=== PATIENT | male | born 1975 | race Two or more races ===

== ENCOUNTER 2024-10-31 04:22 | Emergency (ER) | payer MEDICAID, SELFPAY ==
[2024-10-31 04:23] VITALS: BMI 25.7
[2024-10-31 04:31] VITALS: BP 147/82; PULSE 97; RESP 18; TEMP 37.1; O2SAT 97
--- NOTE | 2024-10-31 04:38 | EDNOTE_ITS ---
Upper Respiratory Inf. RME/HPI General Chief Complaint: Flu Like Symptoms Stated Complaint: cough, neck and lung pain Time Seen by Provider: 10/31/24 04:35 Source: patient Arrival date/time: 10/31/24 04:22 49-year-old male past medical history of diabetes presents emergency department complaining of productive cough with green phlegm, headache, and lung pain for 2 days. Mode of arrival: ambulatory Limitations: no limitations Related Data Home Medications ?Medication ?Instructions ?Recorded ?Confirmed metformin 1,000 mg tablet 1,000 mg PO BID 04/04/19 02/23/24 hydrochlorothiazide 25 mg tablet 25 mg PO DAILY 02/23/24 02/23/24 Previous Rx's ?Medication ?Instructions ?Recorded lancet with blood glucose test #300 ea 03/09/23 strips and pen needles combo pack flash glucose scanning reader #1 ea 02/25/24 (FreeStyle Joellen 14 Day [place]) flash glucose sensor (FreeStyle #1 ea 02/25/24 Joellen 2 Sensor kit) acetaminophen 500 mg capsule 500 mg PO Q6H PRN pain #30 caps 10/31/24 azithromycin 250 mg tablet See Rx Instructions PO .COMPLEX #6 10/31/24 tabs ibuprofen 600 mg tablet 600 mg PO Q8H PRN pain #20 tabs 10/31/24 Allergies Allergy/AdvReac Type Severity Reaction Status Date / Time No Known Allergies Allergy Verified 08/08/24 16:32 Review of Systems Review of Systems Systems Reviewed: All systems reviewed, normal except as documented Constitutional Constitutional: Reports system reviewed and no additional complaints, except as documented, Denies body ache(s), Denies chills, Denies fever(s) and Reports headache(s) Eyes Eyes: Reports system reviewed and no additional complaints, except as documented and Denies change in vision ENT Ears, Nose, Mouth, and Throat: Reports system reviewed and no additional complaints, except as documented, Denies disequilibrium, Denies dizziness, Reports headache(s), Denies sore throat and Denies vertigo Cardiovascular Cardiovascular: Reports system reviewed and no additional complaints, except as documented, Denies chest pain and Denies dyspnea Respiratory Respiratory: Reports system reviewed and no additional complaints, except as documented, Denies chest congestion, Reports cough, Denies dyspnea and Reports excessive phlegm production Gastrointestinal Gastrointestinal: Reports system reviewed and no additional complaints, except as documented, Denies abdominal pain, Denies nausea and Denies vomiting Musculoskeletal Musculoskeletal: Reports system reviewed and no additional complaints, except as documented, Denies abnormal gait and Denies arthralgias Integumentary/Breasts Skin/Breast: Reports system reviewed and no additional complaints, except as documented, Denies erythema, Denies rash and Denies wounds Neurologic Neurologic: Reports system reviewed and no additional complaints, except as docu mented, Denies abnormal gait, Denies disequilibrium, Denies dizziness, Reports headache(s) and Denies vertigo Past Medical History Past Medical History NEUROLOGIC: Negative Seizures CARDIAC: Positive Hypertension; Negative Cardiac Disorders or Congestive Heart Failure RESPIRATORY: Negative Chronic Obstructive Pulmonary Disease (COPD) or Asthma GENITOURINARY: Negative Renal Disease ENDOCRINE: Positive Endocrine Disorders and Diabetes Mellitus Type 2; Negative Diabetes Mellitus Type 1 HEMATOLOGIC: Negative Sickle Cell Disease OTHER HISTORY: Negative Falls, Blood Transfusions, Blood Transfusion Reaction or Anesthesia Reactions Social History SMOKING STATUS: Never smoker SECOND HAND EXPOSURE: No SUBSTANCE USE: does not use ED Exam General Limitations: Present no limitations General appearance: Present alert and in no apparent distress Head Head exam: Present atraumatic Eye Eye exam: Present normal appearance, PERRL and EOMI ENT ENT exam: Present normal exam, normal oropharynx and mucous membranes moist Neck Neck exam: Present normal inspection, full ROM and trachea midline Chest Chest inspection: Present normal inspection and symmetric chest wall rise Respiratory Respiratory exam: Present normal lung sounds bilaterally and other (Fine crackles left lower lobe on inspiration) Cardiovascular Cardiovascular exam: Present regular rate, normal rhythm and normal heart sounds Abdominal Exam Abdominal exam: Present soft and normal bowel sounds Extremities Exam Extremities exam: Present normal inspection and full ROM Back Exam Back exam: Present normal inspection and full ROM Neurological Exam Neurological exam: Present alert, oriented X3 and CN II-XII intact Psychiatric Psychiatric exam: Present normal affect and normal mood Skin Skin exam: Present warm, dry, intact and normal color Course Quality Measures none Orders Category Date Time Status Bedside COVID-19 Antigen Test NOW Care 10/31/24 04:37 Active Bedside Influenza A&B Antigen Test NOW Care 10/31/24 04:37 Completed Acetaminophen Tab [Tylenol ES Tab] Med 10/31/24 04:37 Discontinued 1,000 mg PO X1 ONE Ibuprofen Tab [Motrin Tab] Med 10/31/24 04:37 Discontinued 600 mg PO X1 ONE Vital Signs Vital signs: Vital Signs Temperature 98.7 F 10/31/24 04:31 Pulse Rate 97 10/31/24 04:31 Respiratory Rate 18 10/31/24 04:31 Blood Pressure 147/82 H 10/31/24 04:31 Pulse Oximetry (%) 97 10/31/24 04:31 Oxygen Delivery Method Room Air 10/31/24 04:31 97% room air within normal limits Upper Respiratory Infection MDM Narrative MDM Narrative:: 49-year-old male past medical history of diabetes presents emergency department complaining of productive cough with green phlegm, headache, and lung pain for 2 days. Left lower lobe fine crackles on auscultation. Patient also reports has been having subjective fevers at home. Due to the fact patient reporting subjective fevers green phlegm and fine crackles left lower lobe we will empirically treat for pneumonia. Patient stable for discharge. Patient data External records reviewed:: [facility] previous records Clinical information provided by:: patient Social determinants that could affect healthcare access:: none Patient has the following chronic illnesses:: See chart How is presenting disease/condition affected by chronic disease/condition?: uneffected by Evaluation data The following diagnostics were reviewed and interpreted by me:: lab results Lab and/or radiology exams considered but not ordered:: Ordered Interpretation Summary: Interpreted by me Medications / Prescriptions Medications or Prescriptions considered but not ordered:: Ordered Medication administrations:: Medication Administration History Discontinued Medications Acetaminophen (Acetaminophen 500 Mg Tablet) 1,000 mg PO X1 ONE Stop: 10/31/24 04:38 Last Admin: 10/31/24 04:53 Dose: 1,000 mg Documented By: KG Ibuprofen (Ibuprofen Tab 600 Mg Tablet) 600 mg PO X1 ONE Stop: 10/31/24 04:38 Last Admin: 10/31/24 04:53 Dose: 600 mg Documented By: KG Given Consultations Consultation(s) initiated? (list below): No Diagnosis Upper Respiratory Differential Diagnosis: upper respiratory infection, sinusitis, viral infection, bronchitis, influenza and pharyngitis Most likely diagnosis given after review of the tests above:: Pneumonia Admission Indicated Admission indicated?: not indicated Admission Request Was there a request for admission?: No Disposition Plan Disposition Plan: Discharge Discharge Attestation Discharge Attestation: The patient and all family members were given an opportunity to ask questions and understood the discharge instructions. Discharge instructions specifically effects, indications for sooner follow up or return to the emergency department, and the expected course of current diagnosis. Patient condition: Stable Discharge Plan Plan Patient Disposition: HOME (Self Care) Disposition Comment: Stable Prescriptions/Referrals Prescriptions/Med Rec: New azithromycin 250 mg tablet See Rx Instructions .ROUTE .COMPLEX Qty: 6 0RF Rx Instructions: For 250 mg dose pack: take 500 mg today (day 1), then 250 mg for 4 days (days 2-5) acetaminophen 500 mg capsule 500 mg PO Q6H PRN (Reason: pain) Qty: 30 0RF ibuprofen 600 mg tablet 600 mg PO Q8H PRN (Reason: pain) Qty: 20 0RF No Action metformin 1,000 mg Tablet 1,000 mg PO BID (DME) lancet-gluc test strip-needles Combo Pack See Rx Instructions .Route Qty: 300 0RF Rx Instructions: As directed hydrochlorothiazide 25 mg tablet 25 mg PO DAILY (DME) FreeStyle Joellen 2 Sensor Kit See Rx Instructions .Route Qty: 1 6RF Rx Instructions: As directed (DME) FreeStyle Joellen 14 Day [place] Misc See Rx Instructions .Route Qty: 1 0RF Rx Instructions: As directed Problem List Clinical Impression: Pneumonia Patient/Caregiver Discharge Instructions Discharge Activity: activity as tolerated Education Materials: ED Pneumonia (Adult) Additional Instructions: Drink plenty of fluids and get plenty of rest. Take Tylenol or ibuprofen as needed for fever or pain. Take antibiotics as prescribed. Follow-up with primary care provider in 2 to 3 days. Return to emergency department for any worsening symptoms or as needed. Print Language: Congolese Stand Alone Forms: [facility] Award Info., Patient Portal Info Letter PA/SAEID Supervising Physician AHSAN/SAEID Supervising Physician: Dr. Arguello
[2024-10-31] MEDS: ACETAMINOPHEN 500 MG TABLET 1000 MG PO (04:53)
[2024-10-31] MEDS: IBUPROFEN TAB 600 MG TABLET PO (04:53)
== END 2024-10-31 05:19 | disposition home or self-care (01) ==
LOC: SERX 05:21
PROVIDERS: Emergency Provider Emergency Medicine; PCP Physician Assistant
DX: J18.9 Pneumonia, unspecified organism (principal)
CPT/HCPCS: 87400; 87811; 99283; A9270

== ENCOUNTER 2024-12-05 16:37 | Emergency (ER) | payer MEDICAID, SELFPAY ==
[2024-12-05 17:18] VITALS: BP 161/96; PULSE 106; RESP 20; TEMP 37; O2SAT 95
--- NOTE | 2024-12-05 17:22 | XR_ITS ---
Examination: PA lateral chest 2 views Technique: Upright PA lateral chest 2 views Exam date and time: December 05, 2024 Indications: Coughing today. Findings: Normal heart size. No pneumonia or pulmonary edema. The osseous structures are intact Impression: No pneumonia or pulmonary edema
--- NOTE | 2024-12-05 17:22 | PD.EDRME ---
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
[2024-12-05 18:09] LABS: Basophils % (Auto) 1 % (0-2.5); Eosinophils % (Auto) 1 % (0-10); Hematocrit 37.2 % (41.0-53.0); Hemoglobin 13.3 g/dL (13.5-16.0); Immature Granulocytes % (Auto) 0 % (0-0); Lymphocytes # (Auto) 1.8 Thou/mm3 (1.0-4.8); Lymphocytes % (Auto) 41 % (10-50); Mean Corpuscular HGB Conc 35.8 g/dl (31.0-37.0); Mean Corpuscular Hemoglobin 34.4 pg (25.0-35.0); Mean Corpuscular Volume 96 fL (80-100); Monocytes # (Auto) 0.5 Thou/mm3 (0.0-0.8); Monocytes % (Auto) 11 % (0-12); Neutrophils # (Auto) 2.1 Thou/mm3 (1.8-7.7); Neutrophils % (Auto) 47 % (37-80); Nucleated Red Blood Cell % 0 /100 WBC (0); Platelet Count 105 Thou/mm3 (140-440); RDW Standard Deviation 46.9 fL (35.1-43.9); Red Blood Count 3.87 Miln/mm3 (4.50-5.90); White Blood Count 4.4 Thou/mm3 (3.8-10.6)
[2024-12-05 18:25] LABS: Alanine Aminotransferase 32 U/L (10-49); Albumin, Serum 4.4 gm/dL (3.5-5.0); Albumin/Globulin Ratio 1.4 (1.2-2.2); Alkaline Phosphatase 87 U/L (46-116); Anion Gap 11 (7-16); Aspartate Amino Transferase 38 U/L (0-34); BUN/Creatinine Ratio 8 Ratio (12-20); Bilirubin,Total 0.5 mg/dL (0.3-1.2); Blood Urea Nitrogen < 5 mg/dL (9-23); Calcium 8.9 mg/dL (8.3-10.6); Calcium (Corrected) 8.9 mg/dL (8.5-10.1); Carbon Dioxide 26.8 mMol/L (20.0-31.0); Chloride 96 mMol/L (98-107); Creatinine (Component) 0.6 mg/dL (0.6-1.3); Globulin 3.1 gm/dL (2.3-3.5); Glucose 133 mg/dL (74-106); Osmolality,Calculated 267 (275-295); Potassium 3.7 mMol/L (3.4-5.1); Sodium 134 mMol/L (136-145); Total Protein 7.5 gm/dL (5.7-8.2); eGFR > 60 See Note
[2024-12-05 19:45] VITALS: BP 174/93; BP 178/99; PULSE 104; RESP 18; TEMP 36.7; O2SAT 95
--- NOTE | 2024-12-05 21:35 | PD.EDSOB ---
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 Onset of symptoms for more than a month, getting worse, severity moderate. Also complaining of shortness of breath. Denies any fever denies any other complaints or medications taken prior to arrival. Related Data Home Medications ?Medication ?Instructions ?Recorded ?Confirmed metformin 1,000 mg tablet 1,000 mg PO BID 04/04/19 02/23/24 hydrochlorothiazide 25 mg tablet 25 mg PO DAILY 02/23/24 02/23/24 Previous Rx's ?Medication ?Instructions ?Recorded lancet with blood glucose test #300 ea 03/09/23 strips and pen needles combo pack flash glucose scanning reader #1 ea 02/25/24 ([facility] Joellen 14 Day [place]) flash glucose sensor ([employer]Style #1 ea 02/25/24 Joellen 2 Sensor kit) acetaminophen 500 mg capsule 500 mg PO Q6H PRN pain #30 caps 10/31/24 azithromycin 250 mg tablet See Rx Instructions PO .COMPLEX #6 10/31/24 tabs ibuprofen 600 mg tablet 600 mg PO Q8H PRN pain #20 tabs 10/31/24 albuterol sulfate 90 mcg/actuation 2 inh inhalation Q6H PRN shortness 12/05/24 aerosol inhaler of breath or wheezing #8.5 grams prednisone 50 mg tablet 50 mg PO QDAY #7 tabs 12/05/24 Allergies Allergy/AdvReac Type Severity Reaction Status Date / Time No Known Allergies Allergy Verified 08/08/24 16:32 Review of Systems Review of Systems Narrative Review of Systems: Review of system reviewed and within normal limits except mentioned in HPI ED Exam Narrative Physical exam: VITAL SIGNS: Reviewed. GENERAL APPEARANCE: Alert and interactive, follows commands, no acute distress, HEAD AND FACE: Non-traumatic. ENT: PERRL, pink conjunctivitis, eyelid no trauma, Mucous membrane moist. NECK: Supple, nontender, no nuchal rigidity. CHEST: No tenderness, no crepitus, no paradoxical movement, no retractions. LUNGS: Clear, well ventilated, symmetric, no rales, no wheezing, no ronchi, no stridor, good breath sounds bilaterally. HEART: Regular rate, regular rhythm, no murmur, no gallops. ABDOMEN: Soft, positive bowel sounds, nondistended, no guarding, nontender, no rebound, no masses, RECTAL: Deferred. GENITAL: Deferred. NEUROLOGICAL: Gross motor function intact sensory function intact, Appropriate for age. MUSCULOSKELETAL: low back nontender, full range of motion. EXTREMITIES: Nontender, full range of motion. SKIN: Color pink, dry, no rash, no lacerations, no abrasions, no contusions. LYMPHATICS: Deferred. Course Quality Measures none Orders Category Date Time Status Bedside Influenza A&B Antigen Test NOW Care 12/05/24 17:22 Completed XR chest 2V Stat Exams 12/05/24 17:22 Completed CBC Stat Lab 12/05/24 17:46 Completed CMP [Comprehensive Metabolic Panel] Stat Lab 12/05/24 17:46 Completed Vital Signs Vital signs: Vital Signs Temperature 98.6 F 12/05/24 17:18 Pulse Rate 106 H 12/05/24 17:18 Respiratory Rate 20 12/05/24 17:18 Blood Pressure 161/96 H 12/05/24 17:18 Pulse Oximetry (%) 95 12/05/24 17:18 Oxygen Delivery Method Room Air 12/05/24 17:18 Shortness of Breath / Dyspnea MDM Narrative MDM Narrative:: 49-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 Onset of symptoms for more than a month, getting worse, severity moderate. Also complaining of shortness of breath. Denies any fever denies any other complaints or medications taken prior to arrival. Patient's workup all came back normal including normal chest x-ray. Results discussed with the patient. Patient appears nontoxic and hemodynamically stable. Patient discharged home and instructed to follow-up with primary care provider in 24 to 48 hours. Instructed to return to the emergency department immediately if worsening of symptoms Patient data External records reviewed:: None Clinical information provided by:: patient Social determinants that could affect healthcare access:: none Patient has the following chronic illnesses:: Pretension How is presenting disease/condition affected by chronic disease/condition?: uneffected by Evaluation data The following diagnostics were reviewed and interpreted by me:: lab results and radiology exam(s) Lab and/or radiology exams considered but not ordered:: None Interpretation Summary: See results in [facility] Medications / Prescriptions Medications or Prescriptions considered but not ordered:: None Medication administrations:: None Consultations Consultation(s) initiated? (list below): No Diagnosis Shortness of Breath Differential Diagnosis: community acquired pneumonia and asthma with exacerbation Most likely diagnosis given after review of the tests above:: Cough, shortness of breath Admission Indicated Admission indicated?: not indicated Admission Request Was there a request for admission?: No Disposition Plan Disposition Plan: Discharge Discharge Attestation Discharge Attestation: The patient was given an opportunity to ask questions and understood the discharge instructions. Discharge instructions specifically effects, indications for sooner follow up or return to the emergency department, and the expected course of current diagnosis. Patient condition: Stable Discharge Plan Plan Patient Disposition: HOME (Self Care) Disposition Comment: Stable Prescriptions/Referrals Prescriptions/Med Rec: New prednisone 50 mg tablet 50 mg PO QDAY Qty: 7 0RF albuterol sulfate 90 mcg/actuation HFA aerosol inhaler 2 inh inhalation Q6H PRN (Reason: shortness of breath or wheezing) Qty: 8.5 0RF No Action metformin 1,000 mg Tablet 1,000 mg PO BID (DME) lancet-gluc test strip-needles Combo Pack See Rx Instructions .Route Qty: 300 0RF Rx Instructions: As directed hydrochlorothiazide 25 mg tablet 25 mg PO DAILY (DME) FreeStyle Joellen 2 Sensor Kit See Rx Instructions .Route Qty: 1 6RF Rx Instructions: As directed (DME) FreeStyle Joellen 14 Day [place] Misc See Rx Instructions .Route Qty: 1 0RF Rx Instructions: As directed azithromycin 250 mg tablet See Rx Instructions .ROUTE .COMPLEX Qty: 6 0RF Rx Instructions: For 250 mg dose pack: take 500 mg today (day 1), then 250 mg for 4 days (days 2-5) acetaminophen 500 mg capsule 500 mg PO Q6H PRN (Reason: pain) Qty: 30 0RF ibuprofen 600 mg tablet 600 mg PO Q8H PRN (Reason: pain) Qty: 20 0RF Referrals: Chikis Rodriguez PA-C [Primary Care Provider] - In 1 week Problem List Clinical Impression: Cough, Shortness of breath Patient/Caregiver Discharge Instructions Discharge Activity: activity as tolerated Education Materials: ED Shortness of Breath (Dyspnea) Additional Instructions: Thank you for the opportunity for serving you today. You are stable for discharged . You are advised to: Follow-up with your PCP in 1 to 2 days Return to ED for worsening of symptoms Increase oral fluids Take medication as prescribed Print Language: Armenian Stand Alone Forms: [facility] Award Info., Patient Portal Info Letter PA/CUSTOMS BROKER Supervising Physician PA/CUST[employer]S BROKER Supervising Physician: MD French
== END 2024-12-05 22:25 | disposition home or self-care (01) ==
PROVIDERS: Nurse Practitioner Primary Care; Emergency Provider Emergency Medicine; PCP Physician Assistant
DX: R05.9 Cough, unspecified (principal); R06.02 Shortness of breath; Z86.19 Personal history of other infectious and parasitic diseases
CPT/HCPCS: 36415; 71046; 80053; 85025; 87400; 99283

== ENCOUNTER 2025-02-28 14:58 | Emergency (ER) | payer MEDICAID, SELFPAY ==
[2025-02-28 15:11] VITALS: BP 146/93; PULSE 115; RESP 18; TEMP 36.9; O2SAT 96; BMI 26.2
--- NOTE | 2025-02-28 15:16 | XR_ITS ---
Examination: PA lateral chest 2 views TECHNIQUE: Upright PA lateral chest 2 views Date and time: February 28, 2025 1655 hours INDICATIONS: Chest pain today. FINDINGS: Normal heart size. Lungs are clear. The osseous structures are intact IMPRESSION: No active disease
--- NOTE | 2025-02-28 15:16 | EKG_ITS ---
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
--- NOTE | 2025-02-28 15:17 | PD.EDRME ---
Rapid Medical Screening Exam RME Arrival date/time: 02/28/25 14:58 49-year-old male with a history of type 2 diabetes presents to the emergency room with a chief complaint of generalized body tingling, chest pain and weakness since 10 AM this morning I have greeted and performed a focused initial assessment of this patient. A comprehensive ED assessment and evaluation of the patient, analysis of all test results, and completion of the medical decision making process will be conducted by additional ED providers. Chief Complaint: General Adult/Misc Complain Time Seen by Provider: 02/28/25 15:05 Vital signs: Vital Signs Temperature 98.4 F 02/28/25 15:11 Pulse Rate 115 H 02/28/25 15:11 Respiratory Rate 18 02/28/25 15:11 Blood Pressure 146/93 H 02/28/25 15:11 Pulse Oximetry (%) 96 02/28/25 15:11 Oxygen Delivery Method Room Air 02/28/25 15:11 Vital signs reviewed by provider: Yes
[2025-02-28 15:52] LABS: Basophils % (Auto) 1 % (0-2.5); Eosinophils % (Auto) 0 % (0-10); Hematocrit 39.6 % (41.0-53.0); Hemoglobin 14.4 g/dL (13.5-16.0); Immature Granulocytes % (Auto) 0 % (0-0); Immature Granulocytes Auto 0.01 Thou/mm3 (0.00-0.00); Lymphocytes # (Auto) 1.4 Thou/mm3 (1.0-4.8); Lymphocytes % (Auto) 27 % (10-50); Mean Corpuscular HGB Conc 36.4 g/dl (31.0-37.0); Mean Corpuscular Hemoglobin 35.7 pg (25.0-35.0); Mean Corpuscular Volume 98 fL (80-100); Monocytes # (Auto) 0.5 Thou/mm3 (0.0-0.8); Monocytes % (Auto) 10 % (0-12); Neutrophils # (Auto) 3.1 Thou/mm3 (1.8-7.7); Neutrophils % (Auto) 62 % (37-80); Nucleated Red Blood Cell % 0 /100 WBC (0); Platelet Count 104 Thou/mm3 (140-440); RDW Standard Deviation 46.1 fL (35.1-43.9); Red Blood Count 4.03 Miln/mm3 (4.50-5.90); White Blood Count 5.1 Thou/mm3 (3.8-10.6)
[2025-02-28 16:04] LABS: Partial Thromboplastin Time 29.9 Seconds (22.0-36.0); Prothrombin Time 11.4 Seconds (9.0-12.2)
[2025-02-28 16:12] LABS: B-Type Natriuretic Peptide < 20 pg/mL (0-100)
[2025-02-28 16:15] LABS: Alanine Aminotransferase 139 U/L (10-49); Albumin, Serum 4.6 gm/dL (3.5-5.0); Albumin/Globulin Ratio 1.4 (1.2-2.2); Alcohol, Blood Medical 181.9 mg/dL (0-10.0); Alkaline Phosphatase 93 U/L (46-116); Anion Gap 12 (7-16); Aspartate Amino Transferase 152 U/L (0-34); BUN/Creatinine Ratio 8 Ratio (12-20); Bilirubin,Total 0.7 mg/dL (0.3-1.2); Blood Urea Nitrogen 6 mg/dL (9-23); Carbon Dioxide 24.7 mMol/L (20.0-31.0); Chloride 100 mMol/L (98-107); Creatine Kinase 170 U/L (34-171); Creatinine (Component) 0.8 mg/dL (0.6-1.3); Estimated Creatinine Clearance 87.9 mL/min (>60); Globulin 3.3 gm/dL (2.3-3.5); Glucose 160 mg/dL (74-106); Magnesium 1.7 mg/dL (1.6-2.6); Osmolality,Calculated 274 (275-295); Potassium 3.6 mMol/L (3.4-5.1); Sodium 137 mMol/L (136-145); Total Protein 7.9 gm/dL (5.7-8.2); Troponin I < 0.020 ng/mL (0.0-0.045); eGFR > 60 See Note
[2025-02-28 16:26] LABS: Collection Type, Urine Clean Catch; Squamous Epithelial Cell,Urine 0 /hpf (0-5)
[2025-02-28 16:35] LABS: Bilirubin,Urine Negative (Negative); Blood,Urine 1+ (Negative); Clarity,Urine Clear (Clear/Hazy); Color,Urine Lt-Yellow (Lt Yel-Yel); Glucose, Urine 1+ (Negative); Ketones,Urine Negative (Negative); Leukocyte Esterase,Urine Negative (Negative); Nitrite,Urine Negative (Negative); PH,Urine 6.5 (5.0-7.0); Protein,Urine 2+ (Neg - Trace); RBC,Urine 3 /hpf (0-3); Specific Gravity,Urine 1.007 (1.001-1.035); Urobilinogen,Urine Negative mg/dL (0.0-1.0); WBC,Urine 1 /hpf (0-5)
[2025-02-28 16:42] LABS: Amphetamine/Methamp Scrn,U Negative (Negative); Barbiturate Screen,Urine Negative (Negative); Benzodiazepines Screen,Urine Negative (Negative); Benzoylecgonine Screen, Ur Negative (Negative); Fentanyl Screen,Urine Negative (Negative); Opiate Screen,Urine Negative (Negative); THC Screen,Urine Negative (Negative)
--- NOTE | 2025-02-28 17:56 | PD.EDADULT ---
ED General RME/HPI General Chief complaint: General Adult/Misc Complain Stated complaint: Tingling sensation in whole body and chest pain Time Seen by Provider: 02/28/25 15:05 Arrival date/time: 02/28/25 14:58 RME / HPI RME / HPI narrative: 49-year-old male patient with significant history of diabetes mellitus, chronic alcoholism, came in for evaluation regarding generalized body tingling, chest pain, weakness, since earlier this morning. Patient denies any vomiting. Denies any headache. Denies any other complaints. Patient verbalized to drink alcohol earlier today. No medications taken prior to arrival. Related Data Home Medications ?Medication ?Instructions ?Recorded ?Confirmed metformin 1,000 mg tablet 1,000 mg PO BID 04/04/19 02/23/24 hydrochlorothiazide 25 mg tablet 25 mg PO DAILY 02/23/24 02/23/24 Previous Rx's ?Medication ?Instructions ?Recorded lancet with blood glucose test #300 ea 03/09/23 strips and pen needles combo pack flash glucose scanning reader #1 ea 02/25/24 (CallMinerStyle Joellen 14 Day [place]) flash glucose sensor (CallMinerStyle #1 ea 02/25/24 Joellen 2 Sensor kit) acetaminophen 500 mg capsule 500 mg PO Q6H PRN pain #30 caps 10/31/24 azithromycin 250 mg tablet See Rx Instructions PO .COMPLEX #6 10/31/24 tabs ibuprofen 600 mg tablet 600 mg PO Q8H PRN pain #20 tabs 10/31/24 albuterol sulfate 90 mcg/actuation 2 inh inhalation Q6H PRN shortness 12/05/24 aerosol inhaler of breath or wheezing #8.5 grams prednisone 50 mg tablet 50 mg PO QDAY #7 tabs 12/05/24 chlordiazepoxide HCl 25 mg capsule 25 mg PO Q8H PRN alcohol 02/28/25 withdrawal #20 caps Allergies Allergy/AdvReac Type Severity Reaction Status Date / Time No Known Allergies Allergy Verified 02/28/25 15:03 Review of Systems Review of Systems Narrative Review of Systems: Review of system reviewed and within normal limits except mentioned in HPI ED Exam Narrative Physical exam: VITAL SIGNS: Reviewed. GENERAL APPEARANCE: Alert and interactive, follows commands, no acute distress, HEAD AND FACE: Non-traumatic. ENT: PERRL, pink conjunctivitis, eyelid no trauma, Mucous membrane moist. NECK: Supple, nontender, no nuchal rigidity. CHEST: No tenderness, no crepitus, no paradoxical movement, no retractions. LUNGS: Clear, well ventilated, symmetric, no rales, no wheezing, no ronchi, no stridor, good breath sounds bilaterally. HEART: Regular rate, regular rhythm, no murmur, no gallops. ABDOMEN: Soft, positive bowel sounds, nondistended, no guarding, nontender, no rebound, no masses, RECTAL: Deferred. GENITAL: Deferred. NEUROLOGICAL: Gross motor function intact sensory function intact, Appropriate for age. MUSCULOSKELETAL: low back nontender, full range of motion. EXTREMITIES: Nontender, full range of motion. SKIN: Color pink, dry, no rash, no lacerations, no abrasions, no contusions. LYMPHATICS: Deferred. Course Quality Measures none Orders Category Date Time Status EKG (ED ONLY) *Do not use* NOW Care 02/28/25 15:16 Completed EKG (ED Only) Stat Exams 02/28/25 15:16 Draft XR chest 2V Stat Exams 02/28/25 15:16 Completed Alcohol, Blood Medical Stat Lab 02/28/25 15:39 Completed B-Type Natriuretic Peptide Stat Lab 02/28/25 15:39 Completed CBC Stat Lab 02/28/25 15:39 Completed CK [Creatine Kinase] Stat Lab 02/28/25 15:39 Completed Comprehensive Metabolic Panel Stat Lab 02/28/25 15:39 Completed Drug Screen,Urine Stat Lab 02/28/25 16:14 Completed Magnesium Stat Lab 02/28/25 15:39 Completed Partial Thromboplastin Time Stat Lab 02/28/25 15:39 Completed Prothrombin Time with INR Stat Lab 02/28/25 15:39 Completed Troponin I Stat Lab 02/28/25 15:39 Completed Urinalysis Stat Lab 02/28/25 16:14 Completed Diazepam [Valium] Med 02/28/25 17:56 Discontinued 10 mg PO X1 ONE Vital Signs Vital signs: Vital Signs Temperature 98.4 F 02/28/25 15:11 Pulse Rate 115 H 02/28/25 15:11 Respiratory Rate 18 02/28/25 15:11 Blood Pressure 146/93 H 02/28/25 15:11 Pulse Oximetry (%) 96 02/28/25 15:11 Oxygen Delivery Method Room Air 02/28/25 15:11 Critical Care Time Critical Care Time Critical Care Time: No Discharge Plan Plan Patient Disposition: HOME (Self Care) Discharge Disposition comment: Stable Prescriptions/Referrals Prescriptions/Med Rec: New chlordiazepoxide HCl 25 mg capsule 25 mg PO Q8H PRN (Reason: alcohol withdrawal) Qty: 20 0RF No Action metformin 1,000 mg Tablet 1,000 mg PO BID (DME) lancet-gluc test strip-needles Combo Pack See Rx Instructions .Route Qty: 300 0RF Rx Instructions: As directed hydrochlorothiazide 25 mg tablet 25 mg PO DAILY (DME) FreeStyle Joellen 2 Sensor Kit See Rx Instructions .Route Qty: 1 6RF Rx Instructions: As directed (DME) FreeStyle Joellen 14 Day [place] Misc See Rx Instructions .Route Qty: 1 0RF Rx Instructions: As directed azithromycin 250 mg tablet See Rx Instructions .ROUTE .COMPLEX Qty: 6 0RF Rx Instructions: For 250 mg dose pack: take 500 mg today (day 1), then 250 mg for 4 days (days 2-5) acetaminophen 500 mg capsule 500 mg PO Q6H PRN (Reason: pain) Qty: 30 0RF ibuprofen 600 mg tablet 600 mg PO Q8H PRN (Reason: pain) Qty: 20 0RF prednisone 50 mg tablet 50 mg PO QDAY Qty: 7 0RF albuterol sulfate 90 mcg/actuation HFA aerosol inhaler 2 inh inhalation Q6H PRN (Reason: shortness of breath or wheezing) Qty: 8.5 0RF Referrals: Jose Ortiz MD [Primary Care Provider] - In 1 week Problem List Clinical Impression: Alcoholism, chronic Patient/Caregiver Discharge Instructions Discharge Activity: activity as tolerated Education Materials: Alcohol Addiction Additional Instructions: Thank you for the opportunity for serving you today. You are stable for discharged . You are advised to: Follow-up with your PCP in 1 to 2 days Return to ED for worsening of symptoms Increase oral fluids Take medication as prescribed Please stop abusing alcohol Print Language: Ecuadorean Stand Alone Forms: [facility] Award Info., Patient Portal Info Letter PA/CAPABILITY LEAD Supervising Physician PA/CAPABILITY LEAD Supervising Physician: MD Itzel MDM Narrative MDM hospital course (for use when minimal MDM required): 49-year-old male patient with significant history of diabetes mellitus, chronic alcoholism, came in for evaluation regarding generalized body tingling, chest pain, weakness, since earlier this morning. Patient denies any vomiting. Denies any headache. Denies any other complaints. Patient verbalized to drink alcohol earlier today. No medications taken prior to arrival. Patient was given Valium 10 mg p.o. with significant improvement of symptoms. Patient verbalized that he is not stopping drinking alcohol. Laboratory workup unremarkable including normal troponin. Except for alcohol level 181. Patient received Valium p.o. with complete resolution of symptoms. Patient told me that he is ready to go Clinical Information Provided by: patient Medical Records reviewed None Meds/Rx considered, not ordered None Labs/Rad/Tests considered, not ordered Describe: See results MDM Chronic Illness/Social Conditions which may negatively complicate care or outcome(s)-explain: None or not applicable EKG Interpretation EKG #1: EKG Interpretation: EKG as interpreted by me showed sinus tachycardia, ventricular to 103 bpm, no ST segment elevation depression noted. Labs Lab(s) Interpretation(s): Laboratory Is significant for alcohol level of 181.9 Imaging Imaging Interpretation(s): I personally reviewed and interpreted the x-ray of this patient. There is no acute abnormalities found, no infiltrates no pneumothorax no hemothorax normal chest x-ray. Review of other structures was without significant abnormal findings also. I additionally reviewed the radiologist report and agree with the interpretation. Medication Administration(s) none Medication Administration History Discontinued Medications Diazepam (Diazepam 5 Mg Tablet) 10 mg PO X1 ONE Stop: 02/28/25 17:57 Last Admin: 02/28/25 18:09 Dose: 10 mg Documented By: TEAGAN Diagnosis Differential Diagnosis ED Complaint MDM: Generalized weakness anxiety, alcohol withdrawal symptoms, chronic alcoholi Diagnoses ruled out and/or further discussions: Chronic alcoholism
[2025-02-28] MEDS: DIAZEPAM 5 MG TABLET 10 MG PO (18:09)
[2025-02-28 18:13] VITALS: BP 142/91; PULSE 98; RESP 18; TEMP 36.8; O2SAT 97
== END 2025-02-28 21:12 | disposition home or self-care (01) ==
PROVIDERS: Nurse Practitioner Family; Emergency Provider Emergency Medicine; PCP Family Medicine
DX: F10.20 Alcohol dependence, uncomplicated (principal); R07.9 Chest pain, unspecified; Y90.6 Blood alcohol level of 120-199 mg/100 ml; E11.9 Type 2 diabetes mellitus without complications
CPT/HCPCS: 36415; 71046; 80053; 80307; 80320; 81001; 82550; 83735; 83880; 84484; 85025; 85610; 85730; 93005; 99283; A9270; G0480

== ENCOUNTER 2025-05-07 16:15 | Inpatient (IN) | payer MEDICAID, SELFPAY ==
[2025-05-07 16:16] VITALS: BMI 21.4
[2025-05-07 17:03] VITALS: BP 167/90; PULSE 104; RESP 18; TEMP 37.5; O2SAT 97
--- NOTE | 2025-05-07 17:06 | XR_ITS ---
Examination: Abdomen sonogram, Limited Date and time of exam: May 07, 2025 1733 hours Indications: Epigastric pain nausea vomiting diarrhea today Technique: Real-time shah scale transabdominal sonographic images of the upper abdomen obtained. Findings: Multiple gallstones Gallbladder wall 0.2 cm Common bile duct 0.3 cm Pancreatic head 3.2 cm Liver 12.5 cm lobular contour Normal hepatopedal portal venous flow Patent IVC IMPRESSION: Cholelithiasis, negative for cholecystitis Suspect primary hepatocellular disease.
--- NOTE | 2025-05-07 17:06 | XR_ITS ---
Examination: CT abdomen and pelvis without contrast. Coronal 3-D reconstructions. Sagittal 2-D reconstructions. Date and time of exam:May 07, 2025, 1800 hours INDICATIONS: Epigastric pain beginning 4 days ago with nausea and vomiting. CTDI: vol (mGy): 6.74. DLP: (mGycm): 428. Technique: Axial images of the abdomen have been obtained, 3 mm slice thickness Intravenous contrast material has not been administered. Low dose protocols were performed. One or more of the following dose reduction techniques were used; automated exposure control, adjustment of the mA and/or KV according to patient size, use of iterative reconstruction technique. Findings: Diffuse fatty infiltration throughout the liver, liver regular contour Distended gallbladder tiny gallstones Spleen not enlarged No pancreatic mass No definite common bile duct stones Solid mass irregular margins anteriorly left kidney, 3.9 x 4.2 cm Perinephric stranding Normal appendix Mild prostatomegaly Mild thickening of the urinary bladder wall Intact vertebral bodies IMPRESSION: Cholelithiasis, distended gallbladder, no definite common bile duct or common hepatic duct stones. Solid mass irregular margins anterior left kidney 3.9 x 4.2 cm, recommend MRI abdomen follow up. Postcontrast to confirm renal tumor Perinephric stranding, consider urinary tract infection Cystitis better
--- NOTE | 2025-05-07 17:07 | PD.EDRME ---
Rapid Medical Screening Exam RME Arrival date/time: 05/07/25 16:15 50-year-old male presents to the emergency department today for complaints of generalized abdominal pain Chief Complaint: Abdominal Pain Vital signs: Vital Signs Temperature 99.5 F 05/07/25 17:03 Pulse Rate 104 H 05/07/25 17:03 Respiratory Rate 18 05/07/25 17:03 Blood Pressure 167/90 H 05/07/25 17:03 Pulse Oximetry (%) 97 05/07/25 17:03 Oxygen Delivery Method Room Air 05/07/25 17:03
[2025-05-07 17:24] LABS: Collection Type, Urine Clean Catch; Squamous Epithelial Cell,Urine 0 /hpf (0-5)
[2025-05-07 17:27] LABS: Bilirubin,Urine Negative (Negative); Blood,Urine 1+ (Negative); Clarity,Urine Clear (Clear/Hazy); Color,Urine Lt-Yellow (Lt Yel-Yel); Culture Indicated,Urine Not Indicated; Glucose, Urine 1+ (Negative); Ketones,Urine Negative (Negative); Leukocyte Esterase,Urine Negative (Negative); Nitrite,Urine Negative (Negative); PH,Urine 6.5 (5.0-7.0); Protein,Urine 2+ (Neg - Trace); RBC,Urine 4 /hpf (0-3); Specific Gravity,Urine 1.011 (1.001-1.035); Urobilinogen,Urine 2.0 mg/dL (0.0-1.0); WBC,Urine 2 /hpf (0-5)
[2025-05-07 17:33] LABS: Basophils # (Auto) 0.0 Thou/mm3 (0.0-0.2); Basophils % (Auto) 1 % (0-2.5); Eosinophils # (Auto) 0.1 Thou/mm3 (0.0-0.5); Eosinophils % (Auto) 1 % (0-10); Hematocrit 39.7 % (41.0-53.0); Hemoglobin 14.3 g/dL (13.5-16.0); Immature Granulocytes Auto 0.01 Thou/mm3 (0.00-0.00); Lymphocytes # (Auto) 1.2 Thou/mm3 (1.0-4.8); Lymphocytes % (Auto) 33 % (10-50); Mean Corpuscular HGB Conc 36.0 g/dl (31.0-37.0); Mean Corpuscular Hemoglobin 36.6 pg (25.0-35.0); Mean Corpuscular Volume 102 fL (80-100); Monocytes # (Auto) 0.4 Thou/mm3 (0.0-0.8); Monocytes % (Auto) 12 % (0-12); Neutrophils # (Auto) 1.9 Thou/mm3 (1.8-7.7); Neutrophils % (Auto) 52 % (37-80); Nucleated Red Blood Cell # 0.00 Thou/mm3 (0.00-0.00); Nucleated Red Blood Cell % 0 /100 WBC (0); Platelet Count 95 Thou/mm3 (140-440); RDW Standard Deviation 47.1 fL (35.1-43.9); Red Blood Count 3.91 Miln/mm3 (4.50-5.90); White Blood Count 3.7 Thou/mm3 (3.8-10.6)
[2025-05-07 17:35] LABS: Amphetamine/Methamp Scrn,U Negative (Negative); Barbiturate Screen,Urine Negative (Negative); Benzodiazepines Screen,Urine Negative (Negative); Benzoylecgonine Screen, Ur Negative (Negative); Fentanyl Screen,Urine Negative (Negative); Opiate Screen,Urine Negative (Negative); THC Screen,Urine Negative (Negative)
[2025-05-07 18:03] LABS: Alanine Aminotransferase 63 U/L (10-49); Albumin, Serum 4.4 gm/dL (3.5-5.0); Albumin/Globulin Ratio 1.3 (1.2-2.2); Alcohol, Blood Medical 163.9 mg/dL (0-10.0); Alkaline Phosphatase 118 U/L (46-116); Anion Gap 15 (7-16); Aspartate Amino Transferase 113 U/L (0-34); BUN/Creatinine Ratio 9 Ratio (12-20); Bilirubin,Total 0.7 mg/dL (0.3-1.2); Blood Urea Nitrogen 6 mg/dL (9-23); Calcium 8.9 mg/dL (8.3-10.6); Calcium (Corrected) 8.9 mg/dL (8.5-10.1); Carbon Dioxide 25.0 mMol/L (20.0-31.0); Chloride 100 mMol/L (98-107); Creatinine (Component) 0.7 mg/dL (0.6-1.3); Estimated Creatinine Clearance 96.0 mL/min (>60); Globulin 3.3 gm/dL (2.3-3.5); Glucose 154 mg/dL (74-106); Lipase 44 U/L (12-53); Osmolality,Calculated 280 (275-295); Potassium 3.4 mMol/L (3.4-5.1); Sodium 140 mMol/L (136-145); Total Protein 7.7 gm/dL (5.7-8.2); eGFR > 60 See Note
[2025-05-07 22:17] VITALS: BP 176/105; PULSE 98; RESP 19; O2SAT 96
[2025-05-07 22:18] VITALS: BP 176/105; PULSE 107; RESP 20; TEMP 37.3; O2SAT 98
[2025-05-07] MEDS: SODIUM CHLORIDE 0.9% 1000 ML 1,000 ML 999 ML IV (22:31)
[2025-05-07] MEDS: ONDANSETRON INJ 2 MG/ML INJ 2 ML 4 MG IVP (22:32)
[2025-05-07] MEDS: LORazepam 2 MG/ML VIAL IVP (22:32)
[2025-05-07 23:00] VITALS: BP 172/99; PULSE 96; RESP 21; O2SAT 97
--- NOTE | 2025-05-07 23:39 | PD.EDABDPN ---
ED Abdominal Pain RME/HPI General Chief Complaint: Abdominal Pain Stated complaint: ABD PAIN X3 DAYS, HEADACHE X3 DAYS, N/V Time seen by provider: 05/07/25 23:56 Arrival date/time: 05/07/25 16:15 RME / HPI RME / HPI narrative: 05/07/25 16:15 50-year-old male presents to the emergency department today for complaints of generalized abdominal pain DR. ROJAS MAIN ED EVALUATION: 50 y/o male with Hx of Chronic Alcoholism, HTN, and Type II DM presents to ED with epigastric abdominal pain and vomiting x 3 days. Patient has 3 tall-cans of beer every evening after work. Denies bloody or coffee ground emesis. Denies bloody or tarry stool. Denies taking medication for pain. Related Data Home Medications ?Medication ?Instructions ?Recorded ?Confirmed metformin 1,000 mg tablet 1,000 mg PO BID 04/04/19 02/23/24 hydrochlorothiazide 25 mg tablet 25 mg PO DAILY 02/23/24 02/23/24 Previous Rx's ?Medication ?Instructions ?Recorded lancet with blood glucose test #300 ea 03/09/23 strips and pen needles combo pack flash glucose scanning reader #1 ea 02/25/24 (FreeStyle Joellen 14 Day [place]) flash glucose sensor (FreeStyle #1 ea 02/25/24 Joellen 2 Sensor kit) acetaminophen 500 mg capsule 500 mg PO Q6H PRN pain #30 caps 10/31/24 azithromycin 250 mg tablet See Rx Instructions PO .COMPLEX #6 10/31/24 tabs ibuprofen 600 mg tablet 600 mg PO Q8H PRN pain #20 tabs 10/31/24 albuterol sulfate 90 mcg/actuation 2 inh inhalation Q6H PRN shortness 12/05/24 aerosol inhaler of breath or wheezing #8.5 grams prednisone 50 mg tablet 50 mg PO QDAY #7 tabs 12/05/24 chlordiazepoxide HCl 25 mg capsule 25 mg PO Q8H PRN alcohol 02/28/25 withdrawal #20 caps Allergies Allergy/AdvReac Type Severity Reaction Status Date / Time No Known Allergies Allergy Verified 05/07/25 16:16 Review of Systems Review of Systems Systems Reviewed: All systems reviewed, normal except as documented Past Medical History Past Medical History CARDIAC: Positive Hypertension ENDOCRINE: Positive Endocrine Disorders and Diabetes Mellitus Type 2 Social History ALCOHOL: Current ALCOHOL FREQUENCY: 3 or More Drinks per Day LIVES WITH: Children, Family and Spouse ED Exam Narrative Physical exam: GENERAL APPEARANCE: alert and oriented x 4, well-developed, well-nourished, no acute distress VITALS: All vitals were reviewed and the pulse ox is 97% on room air, which is normal according to my interpretation. HEENT: Normocephalic, atraumatic; pupils equal, round, reactive to light; EOMI; mucous membranes pink, moist; oropharynx clear NECK: Supple LUNGS: CTABL; no wheezes, no rales, no rhonchi HEART: Regular rate, regular rhythm; normal S1, S2; no murmurs ABDOMEN: non distended; normal BS; soft, epigastric tenderness, no guarding, no rebound; no masses, no organomegaly, no hernia BACK: no CVA tenderness EXTREMITIES: atraumatic; no edema NEUROLOGIC: awake; alert and oriented x4; cranial nerves II-XII grossly intact; no focal sensory or motor deficits PSYCHIATRIC: appropriate mood and affect SKIN: warm, dry, normal color; no rashes Course Quality Measures none Orders Category Date Time Status CT abdomen pelvis wo con Stat Exams 05/07/25 17:06 Completed US gall bladder Stat Exams 05/07/25 17:06 Completed Alcohol, Blood Medical Stat Lab 05/07/25 17:25 Completed CBC Stat Lab 05/07/25 17:25 Completed Comprehensive Metabolic Panel Stat Lab 05/07/25 17:25 Completed Drug Screen,Urine Stat Lab 05/07/25 17:18 Completed Lipase Stat Lab 05/07/25 17:25 Completed UA, C/S IF [Urinalysis, C/S if Indicated] Stat Lab 05/07/25 17:18 Completed LORazepam [Ativan Inj] Med 05/07/25 22:24 Discontinued 2 mg IVP X1 ONE Lidocaine 2% Viscous [Xylocaine 2% Viscous] Med 05/07/25 23:22 Discontinued 15 ml PO X1 ONE Ondansetron Inj [Zofran Inj] Med 05/07/25 22:23 Discontinued 4 mg IVP X1 ONE Sodium Chloride 0.9% 1000 ml [Ns] 1,000 ml Med 05/07/25 22:24 Discontinued IV 999 mls/hr mg Hyd/Al Hyd/Elsy Susp [Maalox Susp] Med 05/07/25 23:22 Discontinued 30 ml PO X1 ONE Vital Signs Vital signs: Vital Signs Temperature 99.5 F 05/07/25 17:03 Pulse Rate 104 H 05/07/25 17:03 Respiratory Rate 18 05/07/25 17:03 Blood Pressure 167/90 H 05/07/25 17:03 Pulse Oximetry (%) 97 05/07/25 17:03 Oxygen Delivery Method Room Air 05/07/25 17:03 Abdominal Pain MDM MDM Narrative MDM Narrative:: Scribe Attestation: I, Shelby Yost, am scribing for and in the presence of Dr. Rojas. Provider Notation: Although this document has been carefully reviewed, there may still be some phonetic and other typographical errors.? These errors are purely grammatical due to imperfections in the software program and should not be construed in any way to? compromise the substance of the patient's medical care during this visit. Patient data External records reviewed:: [facility] previous records (Reviewed prior ED records from 02/28/25. Patient was seen for Alcoholism, chronic.) Clinical information provided by:: patient Social determinants that could affect healthcare access:: alcohol use Patient has the following chronic illnesses:: HTN, Type II DM, Alcoholism How is presenting disease/condition affected by chronic disease/condition?: exacerbated by Evaluation data The following diagnostics were reviewed and interpreted by me:: lab results and radiology exam(s) Lab and/or radiology exams considered but not ordered:: None Interpretation Summary: RADIOLOGY Gall Bladder US: Findings: Multiple gallstones Gallbladder wall 0.2 cm Common bile duct 0.3 cm Pancreatic head 3.2 cm Liver 12.5 cm lobular contour Normal hepatopedal portal venous flow Patent IVC IMPRESSION: Cholelithiasis, negative for cholecystitis Suspect primary hepatocellular disease. Abdomen/Pelvis CT: Findings: Diffuse fatty infiltration throughout the liver, liver regular contour Distended gallbladder tiny gallstones Spleen not enlarged No pancreatic mass No definite common bile duct stones Solid mass irregular margins anteriorly left kidney, 3.9 x 4.2 cm Perinephric stranding Normal appendix Mild prostatomegaly Mild thickening of the urinary bladder wall Intact vertebral bodies IMPRESSION: Cholelithiasis, distended gallbladder, no definite common bile duct or common hepatic duct stones. Solid mass irregular margins anterior left kidney 3.9 x 4.2 cm, recommend MRI abdomen follow up. Postcontrast to confirm renal tumor Perinephric stranding, consider urinary tract infection Cystitis better Medications / Prescriptions Medications or Prescriptions considered but not ordered:: None Medication administrations:: Medication Administration History Acetaminophen (Acetaminophen 325 Mg Tablet) 650 mg PO Q6H PRN PRN Reason: PAIN SCALE 1-3 (mild Stop: 06/07/25 00:14 Chlordiazepoxide HCl (Chlordiazepoxide Hcl 25 Mg Capsule) 50 mg PO Q6HR PRN PRN Reason: CIWA> 9 Stop: 05/11/25 00:22 Dextrose (Dextrose 50%-Water Inj 50 Ml Syringe) 25 ml IV Q15MIN PRN PRN Reason: BG 50-70 responsive npo pt Stop: 06/07/25 00:14 Dextrose (Dextrose 50%-Water Inj 50 Ml Syringe) 50 ml IV Q15MIN PRN PRN Reason: BG <50 OR BG <70 & pt unresponsive Stop: 06/07/25 00:14 Folic Acid (Folic Acid 1 Mg Tablet) 1 mg PO QDAY JAQUELINE Stop: 06/07/25 08:59 Glucagon (Glucagon Inj 1 Mg Vial) 1 mg IM Q15MIN PRN PRN Reason: BG <70, and no IV access Heparin Sodium (Porcine) (Heparin Sod Inj 5000 Unit/Ml Vial) 5,000 unit SC Q12HR JAQUELINE Stop: 05/22/25 08:59 Lactated Ringer's (Lactated Ringers) 1,000 mls @ 100 mls/hr IV .Q10H JAQUELINE Stop: 05/08/25 10:14 Insulin Human Lispro (Insulin Lispro (Admelog) 1 Unit/0.01 Ml Unit) 0 unit SC [facility]; Protocol Stop: 06/07/25 07:29 Lorazepam (Lorazepam 0.5 Mg Tablet) 0.5 mg PO Q4HR PRN PRN Reason: CIWA Score 2-6 Stop: 05/13/25 00:22 Lorazepam (Lorazepam 0.5 Mg Tablet) 1 mg PO Q4HR PRN PRN Reason: CIWA SCORE 7-11 Stop: 05/13/25 00:22 Lorazepam (Lorazepam 0.5 Mg Tablet) 2 mg PO Q4HR PRN PRN Reason: CIWA SCORE 12-15 Stop: 05/13/25 00:22 Non-Formulary Medication (Benazepril) 40 mg PO QDAY JAQUELINE Stop: 06/07/25 08:59 Ondansetron HCl (Ondansetron Inj 2 Mg/Ml Inj 2 Ml) 4 mg IVP Q6H PRN; Protocol PRN Reason: NAUSEA OR VOMITING Stop: 06/07/25 00:14 Pantoprazole Sodium (Pantoprazole Inj 40 Mg Vial) 40 mg IVP QDAY JAQUELINE Stop: 06/07/25 00:29 Sennosides (Senna Tablet) 1 tab PO QDAY PRN; Protocol PRN Reason: constipation Stop: 06/07/25 00:14 Thiamine HCl (Thiamine 100 Mg Tablet) 100 mg PO QDAY JAQUELINE Stop: 06/07/25 08:59 Discontinued Medications Al Hydrox/Mg Hydrox/Simethicone (Mg Hyd/Al Hyd/Elsy (Maalox Reg) Susp 30 Ml Udc) 30 ml PO X1 ONE Stop: 05/07/25 23:23 Last Admin: 05/07/25 23:50 Dose: 30 ml Documented By: SHABANA Sodium Chloride (Ns) 1,000 mls @ 999 mls/hr IV .Q1H1M ONE Stop: 05/07/25 23:24 Last Infusion: 05/07/25 23:40 Dose: Infused Documented By: Admin: 05/07/25 22:31 Dose: 999 mls/hr Documented By: ROE Lidocaine HCl (Lidocaine Viscous 2% 15 Ml Udc) 15 ml PO X1 ONE Stop: 05/07/25 23:23 Last Admin: 05/07/25 23:50 Dose: 15 ml Documented By: SHABANA Lorazepam (Lorazepam 2 Mg/Ml Vial) 2 mg IVP X1 ONE Stop: 05/07/25 22:25 Last Admin: 05/07/25 22:32 Dose: 2 mg Documented By: ROE Ondansetron HCl (Ondansetron Inj 2 Mg/Ml Inj 2 Ml) 4 mg IVP X1 ONE; Protocol Stop: 05/07/25 22:24 Last Admin: 05/07/25 22:32 Dose: 4 mg Documented By: ROE See above Consultations Consultation(s) initiated? (list below): Yes Consultation #1 (Physician, Specialty, Details): Discussed with resident physician for Dr. Eaton for admission. Reviewed the patient?s HPI, PMHx, lab and/or radiology results. Discussed treatment plan. Will consult an admission to the hospitalist. Time: 23:24 Diagnosis Differential diagnosis abdominal pain: abdominal pain, acute appendicitis, calculus of kidney, constipation, diverticulitis, gastroenteritis, pancreatitis and small bowel obstruction Most likely diagnosis given after review of the tests above:: Alcohol withdrawal, Gastritis. Admission Indicated Admission indicated?: indicated Explain why admission is indicated or not indicated:: Alcohol withdrawal Admission Request Was there a request for admission?: Yes Admission Attestation Admission request attestation: Discussed case with [] from Hospitalist service regarding admission. Discussed patients ED course, exam findings, labs, and radiology results. The Hospitalist [agrees,declines] to accept the patient for admission. Disposition Plan Disposition Plan: Admit Discharge Plan Plan Patient Disposition: Admit Acute Care w/in Hospital Problem List Clinical Impression: Alcohol withdrawal, Gastritis
[2025-05-07] MEDS: LIDOCAINE VISCOUS 2% 15 ML UDC PO (23:50)
[2025-05-07] MEDS: MG HYD/AL HYD/SIME (Maalox Reg) SUSP 30 ML UDC PO (23:50)
[2025-05-07 23:53] VITALS: BP 153/91; RESP 15; O2SAT 97
[2025-05-08] VITALS (10 sets, daily range): BP systolic 133–166; BP diastolic 84–100; PULSE 88–108; RESP 15–19; TEMP 36.2–37.2; O2SAT 93–98; BMI 24.6
--- NOTE | 2025-05-08 00:27 | PD.RESHP ---
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 Patient states that the abdominal pain started several days ago and has progressively worsened. He drinks 3 beers daily after work and states last drink was prior to presenting to the ED. Patient's abdominal pain is located in the epigastric region and does not radiate anywhere with the severity of 8 out of 10. Patient denies having any nausea/vomiting, diarrhea, melena, hematochezia or hematemesis. Medical history: As stated above Surgical history: Denies Allergies: NKDA Medications: Metformin 1000 mg p.o. twice daily, benazepril 40 mg p.o. daily Family history: Noncontributory Social history: Patient works in [employer], drinks 3 beers a day, denies any tobacco or illicit drug use. Lives with and children in [place] ROS: All 12 systems assessed and the patient denies unless otherwise stated in HPI In the ED, patient presented hypertensive 167/90, tachycardic with a heart rate of 104, respiratory rate 18, mildly febrile 99.5 ?F, but saturating 97 on room air. Pertinent lab findings include WBC of 3.7, hemoglobin 14.3 with MCV of 102, platelet 95, BUN 6, creatinine 0.7, AST 113, ALT 63, alk phos 118, urinalysis showed proteinuria and hematuria but no signs of infection, U-Tox negative except for urine alcohol 163.9. CT abdomen pelvis showed cholelithiasis, a solid mass irregular margins anterior left kidney measuring 3.9 x 4.2 cm, perinephric stranding and cystitis pattern, gallbladder ultrasound confirmed cholelithiasis without cholecystitis and primary hepatocellular disease. Patient will be admitted for acute alcohol intoxication with withdrawal symptoms along with possible general surgery consultation for cholelithiasis Exam Vital Signs Temp Pulse Resp BP Pulse Ox O2 Del Method 99.1 F 99 18 147/91 H 96 Room Air 05/07/25 22:18 05/08/25 00:00 05/08/25 00:00 05/08/25 00:00 05/08/25 00:00 05/07/25 22:18 Narrative Exam Physical Exam: GENERAL: Awake, answering questions appropriately in Palestinian, appears stated age, appears disheveled HEENT: NC/AT. Moist mucosa. PERRLA/EOMI. Tongue fasciculations noted CARDIO: Heart RRR, no obvious murmurs, no JVD. PULM: No coughing or visible SOB. Lungs CTA B/L. GI: Abdomen soft, mildly tender to palpation epigastric area without guarding, no rigidity noted. Borborygmi apparent.. SKIN/MSK/EXT: No wounds/discoloration/rashes/edema/amputations. +Pedal pulses present B/L. No asterixis NEURO: Oriented x3, Moves extremities x4, no focal neurologic deficits noted Results: Labs 05/07/25 17:25 05/07/25 17:25 Labs: Short CBC 05/07/25 Range/Units 17:25 WBC 3.7 L (3.8-10.6) Thou/mm3 Hgb 14.3 (13.5-16.0) g/dL Hct 39.7 L (41.0-53.0) % Plt Count 95 L (140-440) Thou/mm3 BMP 05/07/25 17:25 Sodium 140 Potassium 3.4 Chloride 100 Carbon Dioxide 25.0 BUN 6 L Creatinine 0.7 Glucose 154 H Calcium 8.9 Liver Function 05/07/25 Range/Units 17:25 Total Bilirubin 0.7 (0.3-1.2) mg/dL AST 113 H (0-34) U/L ALT 63 H (10-49) U/L Alkaline Phosphatase 118 H (46-116) U/L Albumin 4.4 (3.5-5.0) gm/dL Urine 05/07/25 Range/Units 17:18 Urine Color Lt-Yellow (Lt Yel-Yel) Urine Clarity Clear (Clear/Hazy) Urine pH 6.5 (5.0-7.0) Ur Specific [place] 1.011 (1.001-1.035) Urine Protein 2+ A (Neg - Trace) Urine Glucose (UA) 1+ A (Negative) Quality Measures Quality Measures none Medications Home Medications and Allergies Home Medications ?Medication ?Instructions ?Recorded ?Confirmed ?Type metformin 1,000 mg tablet 1,000 mg PO BID 04/04/19 05/08/25 History benazepril 40 mg tablet 40 mg PO QDAY 05/08/25 05/08/25 History Allergies Allergy/AdvReac Type Severity Reaction Status Date / Time No Known Allergies Allergy Verified 05/07/25 16:16 Visit Medications Acetaminophen (Acetaminophen 325 Mg Tablet) 650 mg PO Q6H PRN PRN Reason: PAIN SCALE 1-3 (mild Stop: 06/07/25 00:14 Chlordiazepoxide HCl (Chlordiazepoxide Hcl 25 Mg Capsule) 50 mg PO Q6HR PRN PRN Reason: CIWA> 9 Stop: 05/11/25 00:22 Dextrose (Dextrose 50%-Water Inj 50 Ml Syringe) 25 ml IV Q15MIN PRN PRN Reason: BG 50-70 responsive npo pt Stop: 06/07/25 00:14 Dextrose (Dextrose 50%-Water Inj 50 Ml Syringe) 50 ml IV Q15MIN PRN PRN Reason: BG <50 OR BG <70 & pt unresponsive Stop: 06/07/25 00:14 Folic Acid (Folic Acid 1 Mg Tablet) 1 mg PO QDAY [facility] Stop: 06/07/25 08:59 Glucagon (Glucagon Inj 1 Mg Vial) 1 mg IM Q15MIN PRN PRN Reason: BG <70, and no IV access Heparin Sodium (Porcine) (Heparin Sod Inj 5000 Unit/Ml Vial) 5,000 unit SC Q12HR [facility] Stop: 05/22/25 08:59 Lactated Ringer's (Lactated Ringers) 1,000 mls @ 100 mls/hr IV .Q10H [facility] Stop: 05/08/25 10:14 Insulin Human Lispro (Insulin Lispro (Admelog) 1 Unit/0.01 Ml Unit) 0 unit SC [facility]; Protocol Stop: 06/07/25 07:29 Lorazepam (Lorazepam 0.5 Mg Tablet) 0.5 mg PO Q4HR PRN PRN Reason: CIWA Score 2-6 Stop: 05/13/25 00:22 Lorazepam (Lorazepam 0.5 Mg Tablet) 1 mg PO Q4HR PRN PRN Reason: CIWA SCORE 7-11 Stop: 05/13/25 00:22 Lorazepam (Lorazepam 0.5 Mg Tablet) 2 mg PO Q4HR PRN PRN Reason: CIWA SCORE 12-15 Stop: 05/13/25 00:22 Non-Formulary Medication (Benazepril) 40 mg PO QDAY JAQUELINE Stop: 06/07/25 08:59 Ondansetron HCl (Ondansetron Inj 2 Mg/Ml Inj 2 Ml) 4 mg IVP Q6H PRN; Protocol PRN Reason: NAUSEA OR VOMITING Stop: 06/07/25 00:14 Sennosides (Senna Tablet) 1 tab PO QDAY PRN; Protocol PRN Reason: constipation Stop: 06/07/25 00:14 Thiamine HCl (Thiamine 100 Mg Tablet) 100 mg PO QDAY JAQUELINE Stop: 06/07/25 08:59 Discontinued Medications Al Hydrox/Mg Hydrox/Simethicone (Mg Hyd/Al Hyd/Elsy (Maalox Reg) Susp 30 Ml Udc) 30 ml PO X1 ONE Stop: 05/07/25 23:23 Last Admin: 05/07/25 23:50 Dose: 30 ml Sodium Chloride (Ns) 1,000 mls @ 999 mls/hr IV .Q1H1M ONE Stop: 05/07/25 23:24 Last Infusion: 05/07/25 23:40 Dose: Infused Lidocaine HCl (Lidocaine Viscous 2% 15 Ml Udc) 15 ml PO X1 ONE Stop: 05/07/25 23:23 Last Admin: 05/07/25 23:50 Dose: 15 ml Lorazepam (Lorazepam 2 Mg/Ml Vial) 2 mg IVP X1 ONE Stop: 05/07/25 22:25 Last Admin: 05/07/25 22:32 Dose: 2 mg Ondansetron HCl (Ondansetron Inj 2 Mg/Ml Inj 2 Ml) 4 mg IVP X1 ONE; Protocol Stop: 05/07/25 22:24 Last Admin: 05/07/25 22:32 Dose: 4 mg Assessment & Plan Plan 50-year-old male with past medical history of alcohol use disorder, crn-rztuxjw-exreushpr type 2 diabetes, hypertension, 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 On assessment, patient has tongue fasciculations but no asterixis and denies having any audiovisual hallucinations but appears anxious Plan: [facility] protocol Thiamine and folic acid supplementation career services manager consultation Counseled on complete cessation from alcohol #Abdominal pain #Cholelithiasis Patient is exhibiting epigastric tenderness on examination which is mild CT abdomen pelvis showed cholelithiasis, a solid mass irregular margins anterior left kidney measuring 3.9 x 4.2 cm, perinephric stranding and cystitis pattern, gallbladder ultrasound confirmed cholelithiasis without cholecystitis and primary hepatocellular disease. Plan: Continue to monitor epigastric tenderness Consider surgery consultation for possible laparoscopic cholecystectomy inpatient versus outpatient #Alcohol induced liver injury #Primary hepatocellular disease #Leukopenia #Thrombocytopenia 5?points Child Class A Life Expectancy : 15-20 years Abdominal surgery barb-operative mortality: 10% Maddrey's discriminant function score 2.5?points Good prognosis. Patient has elevated LFTs AST 113, ALT 63 alk phos of 118 but T. bili is 0.7 Plan: Counseled on alcohol cessation as above Follow-up with PCP for close monitoring #Tmx-hetvieo-ejppetfrn type 2 diabetes Patient on home metformin No A1c on file Plan: Follow-up on morning A1c Sliding scale insulin #Hypertension Patient on home benazepril 40 mg p.o. daily Plan: Restarted home medication #Anterior left kidney mass Incidental CT finding Plan: Monitor with repeat imaging Consider biopsy #History of coccidiomycosis infection Patient previously has a positive serology for cocci Unsure exactly the patient has been treated, no medications seen on med rec Plan: Consider starting treatment Health Maintenance: Lines: PIV Diet: Clear liquid diet Bowel: Senna as needed GI prophylaxis: IV Protonix DVT prophylaxis: Heparin subcu Dispo: Monitoring for alcohol withdrawal, possible general surgery consultation Code: Full Patient seen and assessed with attending Dr. Angelito Mahoney, DO PGY-2 Internal Medicine - GME Code: Attending Provider Attestation/Addendum I attest that I was physically present for the evaluation, physical examination, lab and imaging review of the patient with the residents. I discussed the case with the residents and agree with the findings and plans of care as documented above. After examination of the patient and review of the clinical data I feel that this patient needs admission to the hospital for further treatment/evaluation. Patient is a 50 years old male with past medical history of alcohol use disorder, diabetes mellitus, hypertension, coccidioidomycosis infection who presented to the ED with complaint of abdominal pain and tremulousness. His pain is located in epigastric region and does not radiate. Denies any nausea/vomiting, diarrhea, melena. In the ED, he was hypertensive, tachycardic, had a temperature of 99.5 ?F. Lab results show WBC of 3.7, hemoglobin 14.3, MCV 102, AST 113, ALT 63, alkaline phosphatase 118. He had alcohol level of 163.9. Abdomen/pelvis CT showed cholelithiasis without cholecystitis, similar finding on gallbladder ultrasound. CT abdomen/pelvis also showed solid mass with irregular margins around anterior left kidney, perinephric stranding and cystitis pattern. On exam, patient appeared anxious, tremulous, had mild tenderness to palpation around epigastric region. CIWA score in the ED was 8. We will admit the patient for alcohol use disorder and alcohol withdrawal, we will start him on CIWA protocol including lorazepam. We will also start chlordiazepoxide, thiamine and folate supplement and obtain addiction social worker referral. Patient was counseled extensively on alcohol cessation. Patient has epigastric pain and tenderness along with finding of cholelithiasis on CT, we will start him on antacid and Protonix, if does not resolve, we will consider surgery consult. Started on insulin regimen for diabetes. We will have further discussion regarding biopsy of his kidney mass. Unclear if patient was able to complete his medication for coccidioidomycosis, we will obtain cocci IgM. Bria Eaton MD
[2025-05-08] MEDS: RINGERS LACTATED 1000 ML 1,000 ML 100 ML IV (01:39)
--- NOTE | 2025-05-08 03:18 | PC.NURSE ---
report was given and pt was taken to rm [id number] on monitor by myself.
[2025-05-08 05:29] LABS: Basophils # (Auto) 0.0 Thou/mm3 (0.0-0.2); Basophils % (Auto) 1 % (0-2.5); Eosinophils # (Auto) 0.0 Thou/mm3 (0.0-0.5); Eosinophils % (Auto) 1 % (0-10); Hematocrit 40.0 % (41.0-53.0); Hemoglobin 14.2 g/dL (13.5-16.0); Immature Granulocytes Auto 0.01 Thou/mm3 (0.00-0.00); Lymphocytes # (Auto) 1.2 Thou/mm3 (1.0-4.8); Lymphocytes % (Auto) 25 % (10-50); Mean Corpuscular HGB Conc 35.5 g/dl (31.0-37.0); Mean Corpuscular Hemoglobin 36.5 pg (25.0-35.0); Mean Corpuscular Volume 103 fL (80-100); Monocytes # (Auto) 0.6 Thou/mm3 (0.0-0.8); Monocytes % (Auto) 12 % (0-12); Neutrophils # (Auto) 2.8 Thou/mm3 (1.8-7.7); Neutrophils % (Auto) 61 % (37-80); Nucleated Red Blood Cell # 0.00 Thou/mm3 (0.00-0.00); Nucleated Red Blood Cell % 0 /100 WBC (0); Platelet Count 90 Thou/mm3 (140-440); RDW Standard Deviation 47.2 fL (35.1-43.9); Red Blood Count 3.89 Miln/mm3 (4.50-5.90); White Blood Count 4.6 Thou/mm3 (3.8-10.6)
[2025-05-08 05:50] LABS: Glucose Estimated Average 169 mg/dL (80-131); Hemoglobin A1C 7.5 % Hgb (4.8-6.0)
[2025-05-08 05:59] LABS: Folate 22.11 ng/mL (>5.38); Vitamin B12 674 pg/mL (211-911)
[2025-05-08 06:08] LABS: Alanine Aminotransferase 55 U/L (10-49); Albumin, Serum 4.1 gm/dL (3.5-5.0); Albumin/Globulin Ratio 1.4 (1.2-2.2); Alkaline Phosphatase 83 U/L (46-116); Anion Gap 13 (7-16); Aspartate Amino Transferase 84 U/L (0-34); BUN/Creatinine Ratio 10 Ratio (12-20); Bilirubin,Total 1.0 mg/dL (0.3-1.2); Blood Urea Nitrogen 6 mg/dL (9-23); Calcium 8.6 mg/dL (8.3-10.6); Calcium (Corrected) 8.6 mg/dL (8.5-10.1); Carbon Dioxide 27.7 mMol/L (20.0-31.0); Cardiac Risk Estimate 2.2 RATIO (4.0-6.7); Chloride 102 mMol/L (98-107); Cholesterol 240 mg/dL (132-200); Creatinine (Component) 0.6 mg/dL (0.6-1.3); Estimated Creatinine Clearance 125.3 mL/min (>60); Globulin 3.0 gm/dL (2.3-3.5); Glucose 134 mg/dL (74-106); HDL Cholesterol 111 mg/dL (40-60); LDL Cholesterol,Calculated 116 mg/dL (0-130); Magnesium 1.2 mg/dL (1.6-2.6); Osmolality,Calculated 284 (275-295); Phosphorous 2.0 mg/dL (2.4-5.1); Potassium 3.4 mMol/L (3.4-5.1); Sodium 143 mMol/L (136-145); Total Protein 7.1 gm/dL (5.7-8.2); Triglycerides 66 mg/dL (30-150); eGFR > 60 See Note
[2025-05-08] MEDS: THIAMINE 100 MG TABLET PO (09:37)
[2025-05-08] MEDS: FOLIC ACID 1 MG TABLET PO (09:38)
[2025-05-08 09:51] LABS: INR 1.1 (0.9-1.3); Partial Thromboplastin Time 31.9 Seconds (22.0-36.0); Prothrombin Time 12.0 Seconds (9.0-12.2)
[2025-05-08] MEDS: INSULIN LISPRO (AdmeLOG) 1 UNIT/0.01 ML UNIT SC ×2 (11:45→21:02)
[2025-05-08 12:04] LABS: Cocci Serology, IgM Negative (Negative)
--- NOTE | 2025-05-08 13:05 | XR_ITS ---
Examination: HIDA, hepatobiliary radioisotope scan Gallbladder ejection fraction study. Date and time of exam: May 08, 2025 1533 hours INDICATIONS: Abdominal pain beginning several days ago with elevated liver function tests, primary hepatocellular disease Cholelithiasis with gallbladder sonogram May 07, 2025 Technique: 5.9 mCi of 99M Hepatolite administered. Serial imaging then obtained from immediate through 60 minutes. 1.4 mcg selective catheter Kinevac administered for gallbladder ejection fraction study. Findings: Radioisotope activity within the liver is reasonably homogenous. Gallbladder, common bile duct small bowel activity noted Impression: Gallbladder activity. Abnormal gallbladder ejection fraction, 12%, normal greater than 35%
--- NOTE | 2025-05-08 20:20 | ESPR_ITS ---
<Statement entered by Asia Barfield MD - 05/09/25 14:56> I have reviewed the note and agree with the resident's assessment & plan with exceptions as below. I have personally reviewed labs, imaging, home meds/prior records, examined the patient, formulated and discussed management plan with the IM team. Pt examined at bedside today. He is currently withdrawing from alcohol, currently on CIWA protocol, will have CIWA protocol and including benzodiazepines including lorazepam and Librium as needed. Patient also noted to have a abdominal mass that may represent a renal tumor and could be characterized further with MRI, however we will hold off on further workup at this patient and may consider outpatient MRI studies. Patient also found to have abdominal pain, will order HIDA scan to further evaluate for cholecystitis or biliary dyskinesia as gallbladder ultrasound did show cholelithiasis. Repeat hematology and chemistry in AM. Will consider GI or general surgery consult if needed. Asia Barfield, PGY-2 Internal Medicine Documentation for date of: 05/08/25 Subjective Subjective Interval history: Patient was seen and examined at bedside. No acute events took place overnight. Denies headaches or recent fevers. Admits to mild nausea and vomiting has resolved. Admits to tremulousness and anxiety. Abdominal pain is better felt as a sharp 5/10 pain without radiation. Denies auditory, visual, tactile hallucinations. CIWA 11. Exam Vital Signs Temp Pulse Resp BP Pulse Ox O2 Del Method 97.1 F 88 19 137/90 H 93 L Room Air 05/08/25 20:00 05/08/25 20:00 05/08/25 20:00 05/08/25 20:00 05/08/25 20:00 05/08/25 20:00 Narrative Exam GENERAL: Awake, answering questions appropriately in Malaysian, appears stated age, HEENT: NC/AT. Moist mucosa. PERRLA/EOMI. Tongue fasciculation noted CARDIO: Heart RRR, no obvious murmurs, no JVD. PULM: No coughing or visible SOB. Lungs CTA B/L. GI: Abdomen soft, mildly tender to palpation epigastric area without guarding, no rigidity noted. Borborygmi apparent.. SKIN/MSK/EXT: No wounds/discoloration/rashes/edema/amputations. +Pedal pulses present B/L. No asterixis NEURO: Oriented x3, Moves extremities x4, no focal neurologic deficits noted Objective Labs 05/09/25 05:17 05/09/25 05:17 Labs: Laboratory Results - last 24 hr 05/08/25 05/08/25 04:58 09:50 WBC 4.6 RBC 3.89 L Hgb 14.2 Hct 40.0 L MCV 103 H MCH 36.5 H MCHC 35.5 RDW Std Deviation 47.2 H Plt Count 90 L Neut % (Auto) 61 Lymph % (Auto) 25 [place] % (Auto) 12 Eos % (Auto) 1 Baso % (Auto) 1 Neut # (Auto) 2.8 Lymph # (Auto) 1.2 [place] # (Auto) 0.6 Eos # (Auto) 0.0 Baso # (Auto) 0.0 Immature Gran # (Auto) 0.01 H Absolute Nucleated RBC 0.00 Immature Gran % 0 Nucleated RBC % 0 PT 12.0 INR 1.1 APTT 31.9 Sodium 143 Potassium 3.4 Chloride 102 Carbon Dioxide 27.7 Anion Gap 13 BUN 6 L Creatinine 0.6 Estim Creat Clear Calc 125.3 eGFR > 60 BUN/Creatinine Ratio 10 L Glucose [address] Glu mg/dL 169 H Hemoglobin A1c 7.5 H Calculated Osmolality 284 Calcium 8.6 Corrected Calcium 8.6 Phosphorus 2.0 L Magnesium 1.2 L Total Bilirubin 1.0 AST 84 H ALT 55 H Alkaline Phosphatase 83 D Total Protein 7.1 Albumin 4.1 Globulin 3.0 Albumin/Globulin Ratio 1.4 Triglycerides 66 Cholesterol 240 H LDL Cholesterol, Calc 116 HDL Cholesterol 111 H Cholesterol/HDL Ratio 2.2 L Vitamin B12 674 Folate 22.11 Coccidioides IgM Ab Negative Quality Measures Quality Measures none Assessment & Plan Assessment Current Active Medications: Generic Name Dose Route Start Last Admin Trade Name Freq PRN Reason Stop Dose Admin Acetaminophen 650 mg 05/08/25 00:15 Acetaminophen 325 Mg Tablet PO 06/07/25 00:14 Q6H PRN PAIN SCALE 1-3 (mild Chlordiazepoxide HCl 25 mg 05/08/25 11:27 Chlordiazepoxide Hcl 25 Mg Capsule PO 05/13/25 11:23 Q6HR PRN CIWA greater than 9 Cholestyramine Resin 1 pkt 05/08/25 13:15 05/08/25 15:18 Cholestyramine/Sucrose 1 Pkt Ea PO 06/07/25 13:14 Not Given BID JAQUELINE Dextrose 25 ml 05/08/25 00:15 Dextrose 50%-Water Inj 50 Ml Syringe IV 06/07/25 00:14 Q15MIN PRN BG 50-70 responsive npo pt Dextrose 50 ml 05/08/25 00:15 Dextrose 50%-Water Inj 50 Ml Syringe IV 06/07/25 00:14 Q15MIN PRN BG <50 OR BG <70 & pt unresponsive Folic Acid 1 mg 05/08/25 09:00 05/08/25 09:38 Folic Acid 1 Mg Tablet PO 06/07/25 08:59 1 mg QDAY JAQUELINE Administration Glucagon 1 mg 05/08/25 00:15 Glucagon Inj 1 Mg Vial IM Q15MIN PRN BG <70, and no IV access Heparin Sodium (Porcine) 5,000 unit 05/08/25 09:00 05/08/25 09:31 Heparin Sod Inj 5000 Unit/Ml Vial SC 05/22/25 08:59 Not Given Q12HR [facility] Insulin Human Lispro 0 unit 05/08/25 07:30 05/08/25 16:51 Insulin Lispro (Admelog) 1 Unit/0.01 Ml Unit SC 06/07/25 07:29 Not Given ACHS [facility] Protocol Lisinopril 40 mg 05/08/25 09:00 05/08/25 09:38 Lisinopril 20 Mg Tablet PO 06/07/25 08:59 40 mg QDAY JAQUELINE Administration Protocol Lorazepam 0.5 mg 05/08/25 00:23 Lorazepam 0.5 Mg Tablet PO 05/13/25 00:22 Q4HR PRN CIWA Score 2-6 Lorazepam 1 mg 05/08/25 00:23 05/08/25 02:51 Lorazepam 0.5 Mg Tablet PO 05/13/25 00:22 1 mg Q4HR PRN Administration CIWA SCORE 7-11 Protocol Lorazepam 2 mg 05/08/25 00:23 Lorazepam 0.5 Mg Tablet PO 05/13/25 00:22 Q4HR PRN CIWA SCORE 12-15 Protocol Ondansetron HCl 4 mg 05/08/25 00:15 Ondansetron Inj 2 Mg/Ml Inj 2 Ml IVP 06/07/25 00:14 Q6H PRN NAUSEA OR VOMITING Protocol Pantoprazole Sodium 40 mg 05/08/25 00:30 05/08/25 09:38 Pantoprazole Inj 40 Mg Vial IVP 06/07/25 00:29 40 mg QDAY JAQUELINE Administration Sennosides 1 tab 05/08/25 00:15 Senna Tablet PO 06/07/25 00:14 QDAY PRN constipation Protocol Thiamine HCl 100 mg 05/08/25 09:00 05/08/25 09:37 Thiamine 100 Mg Tablet PO 06/07/25 08:59 100 mg QDAY JAQUELINE Administration Plan Plan 50-year-old male with past medical history of alcohol use disorder, gbf-psrcofl-fniwwqaov type 2 diabetes, hypertension, 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 On assessment, patient has tongue fasciculations but no asterixis and denies having any audiovisual hallucinations but appears anxious Plan: CIWA protocol Thiamine and folic acid supplementation Lorazepam PO 0.5, 1, 2mg PRN Chlordiazepoxide PO 25mg Q6h PRN director volunteer services consultation Counseled on complete cessation from alcohol #Abdominal pain #Cholelithiasis Ddx: gastritis Patient is exhibiting epigastric tenderness on examination which is mild CT abdomen pelvis showed cholelithiasis, a solid mass irregular margins anterior left kidney measuring 3.9 x 4.2 cm, perinephric stranding and cystitis pattern, gallbladder ultrasound confirmed cholelithiasis without cholecystitis and primary hepatocellular disease. HIDA scan: Abnormal gallbladder ejection fraction, 12%, normal greater than 35% Plan: Continue to monitor epigastric tenderness Consider surgery consultation for possible laparoscopic cholecystectomy inpatient versus outpatient #Alcohol induced liver injury #Primary hepatocellular disease #pruritus likely 2/2 to above #Leukopenia #Thrombocytopenia 5?points Child Class A Life Expectancy : 15-20 years Abdominal surgery barb- operative mortality: 10% Maddrey's discriminant function score 2.5?points Good prognosis. Patient has elevated LFTs AST 113, ALT 63 alk phos of 118 but T. bili is 0.7 Plan: Counseled on alcohol cessation as above Follow-up with PCP for close monitoring start cholestyramine #Kfk-tvesoqh-augmaqncz type 2 diabetes Patient on home metformin No A1c on file Plan: Follow-up on morning A1c Sliding scale insulin #Hypertension Patient on home benazepril 40 mg p.o. daily Plan: Restarted home medication #Anterior left kidney mass Incidental CT finding Plan: Monitor with repeat imaging Consider biopsy as outpatient MRI study as outpatient as patient agitated 2/2 withdrawal sxs. #History of coccidiomycosis infection Patient previously has a positive serology for cocci Unsure exactly the patient has been treated, no medications seen on med rec Plan: Consider starting treatment Health Maintenance: Lines: PIV Diet: Clear liquid diet Bowel: Senna as needed GI prophylaxis: IV Protonix DVT prophylaxis: Heparin subcu Dispo: Monitoring for alcohol withdrawal, possible general surgery consultation Code: Full This case was discussed with my attending physician, Dr. Garner, and senior resident, Dr Barfield. Dwight Thakkar DO PGY I Attending Provider Attestation/Addendum I have discussed and was present for the essential components of the history, physical examination, diagnosis, and treatment plan with the resident. I agree with the patient's care as documented by the resident and amended herein by me. Charles Garner DO. Although this document has been carefully reviewed, there may still be some phonetic and other typographical errors. These errors are purely grammatical due to imperfections in the software program and should not be construed in any way to compromise the substance of the patient's medical care during this visit.
[2025-05-08] MEDS: ACETAMINOPHEN 325 MG TABLET 650 MG PO (21:01)
[2025-05-08] MEDS: CHOLESTYRAMINE/SUCROSE 1 PKT EA PO (21:01)
[2025-05-08] MEDS: HEPARIN SOD INJ 5000 UNIT/ML VIAL SC (21:02)
--- NOTE | 2025-05-08 21:21 | PC.NURSE ---
Platelets 90, okay to give heparin shot per Dr. Eaton
[2025-05-09] VITALS (8 sets, daily range): BP systolic 109–165; BP diastolic 78–100; PULSE 15–98; RESP 15–19; TEMP 36.1–36.6; O2SAT 97–98
--- NOTE | 2025-05-09 05:43 | ESPR_ITS ---
Documentation for date of: 05/09/25 Subjective Subjective Interval history: Patient was seen and examined at bedside. No acute events took place overnight. Patient continues to have mild anxiety. Moderate to severe shaking still present to the point that the nurse could not place lines. He had a headache yesterday at night and was given lorazepam 1 mg. Original nausea and vomiting have resolved. Denies any abdominal pain. Has not needed chlordiazepoxide as CIWA has stayed less than 9. The nurse then went ahead and gave 0.5 mg of Ativan this morning for persistent withdrawal symptoms. CIWA 7. Exam Vital Signs Temp Pulse Resp BP Pulse Ox O2 Del Method 97.3 F 15 L 15 124/84 98 Room Air 05/09/25 04:00 05/09/25 04:00 05/09/25 04:00 05/09/25 04:00 05/09/25 04:00 05/09/25 04:00 Narrative Exam GENERAL: Awake, answering questions appropriately in Croatian, appears stated age, HEENT: NC/AT. Moist mucosa. PERRLA/EOMI. Tongue fasciculation noted CARDIO: Heart RRR, no obvious murmurs, no JVD. PULM: No coughing or visible SOB. Lungs CTA B/L. GI: Abdomen soft, mildly tender to palpation epigastric area without guarding, no rigidity noted. [place]gmi apparent.. SKIN/MSK/EXT: No wounds/discoloration/rashes/edema/amputations. +Pedal pulses present B/L. No asterixis NEURO: Oriented x3, Moves extremities x4, no focal neurologic deficits noted Objective Labs 05/09/25 05:17 05/09/25 05:17 Labs: Laboratory Results - last 24 hr 05/08/25 05/08/25 04:58 09:50 WBC 4.6 RBC 3.89 L Hgb 14.2 Hct 40.0 L MCV 103 H MCH 36.5 H MCHC 35.5 RDW Std Deviation 47.2 H Plt Count 90 L Neut % (Auto) 61 Lymph % (Auto) 25 [place] % (Auto) 12 Eos % (Auto) 1 Baso % (Auto) 1 Neut # (Auto) 2.8 Lymph # (Auto) 1.2 [place] # (Auto) 0.6 Eos # (Auto) 0.0 Baso # (Auto) 0.0 Immature Gran # (Auto) 0.01 H Absolute Nucleated RBC 0.00 Immature Gran % 0 Nucleated RBC % 0 PT 12.0 INR 1.1 APTT 31.9 Sodium 143 Potassium 3.4 Chloride 102 Carbon Dioxide 27.7 Anion Gap 13 BUN 6 L Creatinine 0.6 Estim Creat Clear Calc 125.3 eGFR > 60 BUN/Creatinine Ratio 10 L Glucose [address] Glu mg/dL 169 H Hemoglobin A1c 7.5 H Calculated Osmolality 284 Calcium 8.6 Corrected Calcium 8.6 Phosphorus 2.0 L Magnesium 1.2 L Total Bilirubin 1.0 AST 84 H ALT 55 H Alkaline Phosphatase 83 D Total Protein 7.1 Albumin 4.1 Globulin 3.0 Albumin/Globulin Ratio 1.4 Triglycerides 66 Cholesterol 240 H LDL Cholesterol, Calc 116 HDL Cholesterol 111 H Cholesterol/HDL Ratio 2.2 L Vitamin B12 674 Folate 22.11 Coccidioides IgM Ab Negative Quality Measures Quality Measures none Assessment & Plan Assessment Current Active Medications: Generic Name Dose Route Start Last Admin Trade Name Freq PRN Reason Stop Dose Admin Acetaminophen 650 mg 05/08/25 00:15 05/08/25 21:01 Acetaminophen 325 Mg Tablet PO 06/07/25 00:14 650 mg Q6H PRN Administration PAIN SCALE 1-3 (mild Chlordiazepoxide HCl 25 mg 05/08/25 11:27 Chlordiazepoxide Hcl 25 Mg Capsule PO 05/13/25 11:23 Q6HR PRN CIWA greater than 9 Cholestyramine Resin 1 pkt 05/08/25 13:15 05/08/25 21:01 Cholestyramine/Sucrose 1 Pkt Ea PO 06/07/25 13:14 1 pkt BID JAQUELINE Administration Dextrose 25 ml 05/08/25 00:15 Dextrose 50%-Water Inj 50 Ml Syringe IV 06/07/25 00:14 Q15MIN PRN BG 50-70 responsive npo pt Dextrose 50 ml 05/08/25 00:15 Dextrose 50%-Water Inj 50 Ml Syringe IV 06/07/25 00:14 Q15MIN PRN BG <50 OR BG <70 & pt unresponsive Folic Acid 1 mg 05/08/25 09:00 05/08/25 09:38 Folic Acid 1 Mg Tablet PO 06/07/25 08:59 1 mg QDAY JAQUELIEN Administration Glucagon 1 mg 05/08/25 00:15 Glucagon Inj 1 Mg Vial IM Q15MIN PRN BG <70, and no IV access Heparin Sodium (Porcine) 5,000 unit 05/08/25 09:00 05/08/25 21:02 Heparin Sod Inj 5000 Unit/Ml Vial SC 05/22/25 08:59 5,000 unit Q12HR JAQUELINE Administration Insulin Human Lispro 0 unit 05/08/25 07:30 05/08/25 21:02 Insulin Lispro (Admelog) 1 Unit/0.01 Ml Unit SC 06/07/25 07:29 1 unit ACHS JAQUELINE Administration Protocol Lisinopril 40 mg 05/08/25 09:00 05/08/25 09:38 Lisinopril 20 Mg Tablet PO 06/07/25 08:59 40 mg QDAY JAQUELINE Administration Protocol Lorazepam 0.5 mg 05/08/25 00:23 Lorazepam 0.5 Mg Tablet PO 05/13/25 00:22 Q4HR PRN CIWA Score 2-6 Lorazepam 1 mg 05/08/25 00:23 05/08/25 21:17 Lorazepam 0.5 Mg Tablet PO 05/13/25 00:22 1 mg Q4HR PRN Administration CIWA SCORE 7-11 Protocol Lorazepam 2 mg 05/08/25 00:23 Lorazepam 0.5 Mg Tablet PO 05/13/25 00:22 Q4HR PRN CIWA SCORE 12-15 Protocol Ondansetron HCl 4 mg 05/08/25 00:15 Ondansetron Inj 2 Mg/Ml Inj 2 Ml IVP 06/07/25 00:14 Q6H PRN NAUSEA OR VOMITING Protocol Pantoprazole Sodium 40 mg 05/08/25 00:30 05/08/25 09:38 Pantoprazole Inj 40 Mg Vial IVP 06/07/25 00:29 40 mg QDAY JAQUELINE Administration Sennosides 1 tab 05/08/25 00:15 Senna Tablet PO 06/07/25 00:14 QDAY PRN constipation Protocol Thiamine HCl 100 mg 05/08/25 09:00 05/08/25 09:37 Thiamine 100 Mg Tablet PO 06/07/25 08:59 100 mg QDAY JAQUELINE Administration Plan Plan 50-year-old male with past medical history of alcohol use disorder, zgh-szhlfis-[id number] type 2 diabetes, hypertension, 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 Plan: [facility] protocol Thiamine and folic acid supplementation Lorazepam PO 0.5, 1, 2mg PRN Chlordiazepoxide PO 25mg bid director of tax services consultation Counseled on complete cessation from alcohol #Abdominal pain #Cholelithiasis Ddx: gastritis Patient is exhibiting epigastric tenderness on examination which is mild CT abdomen pelvis showed cholelithiasis, a solid mass irregular margins anterior left kidney measuring 3.9 x 4.2 cm, perinephric stranding and cystitis pattern, gallbladder ultrasound confirmed cholelithiasis without cholecystitis and primary hepatocellular disease. HIDA scan: Abnormal gallbladder ejection fraction, 12%, normal greater than 35% Plan: Pantoprazole IVP 40mg Qday Continue to monitor epigastric tenderness Consider surgery consultation for possible laparoscopic cholecystectomy inpatient versus outpatient #Alcohol induced liver injury #Primary hepatocellular disease #pruritus likely 2/2 to above #Leukopenia #Thrombocytopenia 5?points Child Class A Life Expectancy : 15-20 years Abdominal surgery barb- operative mortality: 10% Maddrey's discriminant function score 2.5?points Good prognosis. On 05/09, Patient has elevated LFTs AST 122, ALT 86 alk phos of 118 but T. bili is 1.4 Plan: Counseled on alcohol cessation as above Follow-up with PCP for close monitoring start cholestyramine #Oej-monvebp-lrmnnrnjw type 2 diabetes Patient on home metformin Hgb A1c 7.5 Plan: Sliding scale insulin #Hypertension lisinopril PO 40mg Qday #Anterior left kidney mass Incidental CT finding Plan: Monitor with repeat imaging Consider biopsy as outpatient MRI study as outpatient as patient agitated 2/2 withdrawal sxs. #History of coccidiomycosis infection Patient previously has a positive serology for cocci Labs Negative for IgM Health Maintenance: Lines: PIV Diet: Clear liquid diet Bowel: Senna as needed GI prophylaxis: IV Protonix DVT prophylaxis: Heparin subcu Q12h Dispo: Monitoring for alcohol withdrawal, possible general surgery consultation Code: Full This case was discussed with my attending physician, Dr. Garner, and senior resident, Dr Barfield. Dwight Thakkar DO PGY I Attending Provider Attestation/Addendum I have discussed and was present for the essential components of the history, physical examination, diagnosis, and treatment plan with the resident. I agree with the patient's care as documented by the resident and amended herein by me. Charles Garner DO. Although this document has been carefully reviewed, there may still be some phonetic and other typographical errors. These errors are purely grammatical due to imperfections in the software program and should not be construed in any way to compromise the substance of the patient's medical care during this visit.
[2025-05-09 06:30] LABS: Basophils # (Auto) 0.0 Thou/mm3 (0.0-0.2); Basophils % (Auto) 1 % (0-2.5); Eosinophils # (Auto) 0.1 Thou/mm3 (0.0-0.5); Eosinophils % (Auto) 2 % (0-10); Hematocrit 41.9 % (41.0-53.0); Hemoglobin 14.8 g/dL (13.5-16.0); Immature Granulocytes Auto 0.01 Thou/mm3 (0.00-0.00); Lymphocytes # (Auto) 1.5 Thou/mm3 (1.0-4.8); Lymphocytes % (Auto) 33 % (10-50); Mean Corpuscular HGB Conc 35.3 g/dl (31.0-37.0); Mean Corpuscular Hemoglobin 36.5 pg (25.0-35.0); Mean Corpuscular Volume 104 fL (80-100); Monocytes # (Auto) 0.5 Thou/mm3 (0.0-0.8); Monocytes % (Auto) 10 % (0-12); Neutrophils # (Auto) 2.4 Thou/mm3 (1.8-7.7); Neutrophils % (Auto) 53 % (37-80); Nucleated Red Blood Cell # 0.00 Thou/mm3 (0.00-0.00); Nucleated Red Blood Cell % 0 /100 WBC (0); Platelet Count 94 Thou/mm3 (140-440); RDW Standard Deviation 47.1 fL (35.1-43.9); Red Blood Count 4.05 Miln/mm3 (4.50-5.90); White Blood Count 4.5 Thou/mm3 (3.8-10.6)
[2025-05-09 06:42] LABS: INR 1.1 (0.9-1.3); Partial Thromboplastin Time 30.7 Seconds (22.0-36.0); Prothrombin Time 11.9 Seconds (9.0-12.2)
[2025-05-09 06:44] LABS: Alanine Aminotransferase 86 U/L (10-49); Albumin, Serum 4.0 gm/dL (3.5-5.0); Albumin/Globulin Ratio 1.3 (1.2-2.2); Alkaline Phosphatase 74 U/L (46-116); Anion Gap 11 (7-16); Aspartate Amino Transferase 122 U/L (0-34); BUN/Creatinine Ratio 10 Ratio (12-20); Bilirubin,Total 1.4 mg/dL (0.3-1.2); Blood Urea Nitrogen 7 mg/dL (9-23); Calcium 9.0 mg/dL (8.3-10.6); Calcium (Corrected) 9.0 mg/dL (8.5-10.1); Carbon Dioxide 29.0 mMol/L (20.0-31.0); Chloride 101 mMol/L (98-107); Creatinine (Component) 0.7 mg/dL (0.6-1.3); Estimated Creatinine Clearance 107.4 mL/min (>60); Globulin 3.1 gm/dL (2.3-3.5); Glucose 132 mg/dL (74-106); Osmolality,Calculated 281 (275-295); Potassium 3.9 mMol/L (3.4-5.1); Sodium 141 mMol/L (136-145); Total Protein 7.1 gm/dL (5.7-8.2); eGFR > 60 See Note
[2025-05-09] MEDS: CHOLESTYRAMINE/SUCROSE 1 PKT EA PO ×2 (08:12→20:49)
[2025-05-09] MEDS: THIAMINE 100 MG TABLET PO (08:13)
[2025-05-09] MEDS: FOLIC ACID 1 MG TABLET PO (08:13)
[2025-05-09] MEDS: HEPARIN SOD INJ 5000 UNIT/ML VIAL SC ×2 (08:13→20:49)
--- NOTE | 2025-05-09 10:14 | PC.SS ---
Patient is alert/oriented. Patient was able to verify demographics. Patient is Anguillan speaking only. Principal Administrative Clerk present. Patient was admitted for alcohol withdrawal. Patient states he does not use any DME. Last time patient drank alcohol was 2 days prior to admit. Patient states he's never been to any alcohol rehab. Patient is open to alcohol community resources . Patient states he stopped drinking a year ago and just re started drinking a few days ago. He denies drinking hard liquor. Patient states he drives himself to appointments. Pharmacy: [facility]. PCP: [facility]. Discharge plan is to return home. Alt medical decision maker: Erika, , d/c plan: home with transportation: family
[2025-05-09] MEDS: INSULIN LISPRO (AdmeLOG) 1 UNIT/0.01 ML UNIT SC ×2 (12:14→17:29)
[2025-05-09 13:04] LABS: Cocci Serology, IgG Negative (Negative)
[2025-05-10] VITALS: BP 102/79; PULSE 90; RESP 15; TEMP 36.1; O2SAT 97
[2025-05-10 01:33] VITALS: PULSE 76
[2025-05-10 04:00] VITALS: BP 136/91; PULSE 86; PULSE 94; RESP 18; TEMP 36.3; O2SAT 96
[2025-05-10 06:23] LABS: Basophils # (Auto) 0.1 Thou/mm3 (0.0-0.2); Basophils % (Auto) 1 % (0-2.5); Eosinophils # (Auto) 0.2 Thou/mm3 (0.0-0.5); Eosinophils % (Auto) 4 % (0-10); Hematocrit 39.9 % (41.0-53.0); Hemoglobin 14.4 g/dL (13.5-16.0); Immature Granulocytes Auto 0.00 Thou/mm3 (0.00-0.00); Lymphocytes # (Auto) 1.4 Thou/mm3 (1.0-4.8); Lymphocytes % (Auto) 35 % (10-50); Mean Corpuscular HGB Conc 36.1 g/dl (31.0-37.0); Mean Corpuscular Hemoglobin 36.7 pg (25.0-35.0); Mean Corpuscular Volume 102 fL (80-100); Monocytes # (Auto) 0.5 Thou/mm3 (0.0-0.8); Monocytes % (Auto) 12 % (0-12); Neutrophils # (Auto) 1.9 Thou/mm3 (1.8-7.7); Neutrophils % (Auto) 47 % (37-80); Nucleated Red Blood Cell # 0.00 Thou/mm3 (0.00-0.00); Nucleated Red Blood Cell % 0 /100 WBC (0); Platelet Count 97 Thou/mm3 (140-440); RDW Standard Deviation 45.0 fL (35.1-43.9); Red Blood Count 3.92 Miln/mm3 (4.50-5.90); White Blood Count 3.9 Thou/mm3 (3.8-10.6)
[2025-05-10 07:18] LABS: Alanine Aminotransferase 131 U/L (10-49); Albumin, Serum 3.9 gm/dL (3.5-5.0); Albumin/Globulin Ratio 1.4 (1.2-2.2); Alkaline Phosphatase 71 U/L (46-116); Anion Gap 12 (7-16); Aspartate Amino Transferase 151 U/L (0-34); BUN/Creatinine Ratio 13 Ratio (12-20); Bilirubin,Total 1.1 mg/dL (0.3-1.2); Blood Urea Nitrogen 9 mg/dL (9-23); Calcium 9.0 mg/dL (8.3-10.6); Calcium (Corrected) 9.1 mg/dL (8.5-10.1); Carbon Dioxide 25.6 mMol/L (20.0-31.0); Chloride 103 mMol/L (98-107); Creatinine (Component) 0.7 mg/dL (0.6-1.3); Estimated Creatinine Clearance 107.4 mL/min (>60); Globulin 2.8 gm/dL (2.3-3.5); Glucose 159 mg/dL (74-106); Magnesium 1.2 mg/dL (1.6-2.6); Osmolality,Calculated 282 (275-295); Phosphorous 3.4 mg/dL (2.4-5.1); Potassium 3.0 mMol/L (3.4-5.1); Sodium 141 mMol/L (136-145); Total Protein 6.7 gm/dL (5.7-8.2); eGFR > 60 See Note
[2025-05-10 08:00] VITALS: BP 137/97; PULSE 98; PULSE 99; RESP 14; TEMP 36.2; O2SAT 94
[2025-05-10 08:25] VITALS: BP 137/97; PULSE 98
[2025-05-10] MEDS: THIAMINE 100 MG TABLET PO (08:25)
[2025-05-10] MEDS: FOLIC ACID 1 MG TABLET PO (08:25)
[2025-05-10] MEDS: HEPARIN SOD INJ 5000 UNIT/ML VIAL SC (08:25)
[2025-05-10] MEDS: Magnesium Sulfate 4 GM Ivpb 4 GM/50 ML BAG IV (08:26)
[2025-05-10] MEDS: CHOLESTYRAMINE/SUCROSE 1 PKT EA PO (08:26)
[2025-05-10] MEDS: INSULIN LISPRO (AdmeLOG) 1 UNIT/0.01 ML UNIT SC (11:49)
[2025-05-10 12:00] VITALS: BP 149/96; PULSE 83; PULSE 89; RESP 16; TEMP 36.1; O2SAT 97
--- NOTE | 2025-05-10 13:01 | PC.NURSE ---
Rounded with MD Barfield dc instructions given along with lab work paper. Per cont with DC.
--- NOTE | 2025-05-10 13:38 | PC.NURSE ---
Pt awaiting for ride home. Per pt will be here at approx after [id number]
--- NOTE | 2025-05-10 14:43 | ESDS_ITS ---
<Statement entered by Augustina Lennon MD - 05/10/25 17:29> A 50M with a history of alcohol use disorder, cbj-kvnbuqr-[id number] T2DM, HTN, and prior coccidioidomycosis infection presented to the ED on 05/08/2025 with worsening abdominal pain and shaking due to alcohol withdrawal. He reported drinking 3 beers daily and had his last drink prior to ED presentation. Abdominal pain was localized to the epigastric region, rated 8/10. Urine toxicology was negative except for alcohol (163.9). CIWA score was [address] abdomen/pelvis showed cholelithiasis, solid mass anterior to the left kidney, perinephric stranding, and cystitis pattern. LFTs were elevated: AST 113, ALT 63, alk phos 118, T. bili 0.7. Withdrawal symptoms were managed with lorazepam for flare-ups and chlordiazepoxide BID. Over the course of his hospitalization, abdominal pain, N/V, and tremulousness improved. At discharge, CIWA was 2, and the patient was medically stable, cleared to return to his previous living situation. I?ve reviewed the note and agree with the resident's assessment and plan, with the exceptions outlined above. I personally went over the labs, imaging, home medications, and prior records, and examined the patient. The case was also reviewed with the attending physician. Please note: this document was transcribed using voice recognition technology; minor inaccuracies may be present. Augustina Lennon DO PGY II Planned Discharge Date 05/10/25 DS: Providers Provider Date of admission: 05/08/25 00:15 Primary care physician: Physician No Primary/Family Admitting Provider: Bria Eaton MD Attending Provider on Admission: Bria Eaton MD Attending Provider on DC: Kike Garner DO Discharging Provider: Kike Garner DO DS: Diagnosis Problem List Completed Was Problem List Reviewed/Reconciled?: Yes Hospital Course Hospital Course Hospital course: 50-year-old male with past medical history of alcohol use disorder, owr-dhuftjr-wlkyqxzog type 2 diabetes, hypertension, history of coccidiomycosis infection presented to the ED on 05/08/2025 with worsening abdominal pain of several days and shaking secondary to alcohol with. He stated that he had been drinking 3 beers daily after work and last drink was prior to his persentation to the ED. abdominal pain was localized to the epigastric region, without radiation, and rated 8 out of 10 initially. Urine toxicology screening was negative, except for urine alcohol 163.9. CIWA [address] abdomen pelvis showed cholelithiasis, solid mass with irregular margins anterior to left kidney, Maxim nephric stranding, and cystitis pattern. LFTs were elevated with AST 113, ALT 63, alk phos 118, and T. bili 0.7. We managed his withdrawal symptoms with lorazepam 1 mg for flares as needed as well as chlordiazepoxide 25 mg twice daily. Over the course of his hospital stay, patient's abdominal pain and N/V resolved, tremulousness improved day by day. At the point of discharge, CIWA is 2. Patient is medically stable and safe to be discharged to the previous state of living. Additional imaging: HIDA scan: Abnormal gallbladder ejection fraction, 12%, normal greater than 35% Admission diagnosis: #Alcohol use disorder #Alcohol withdrawal #Abdominal pain #Cholelithiasis #Alcohol induced liver injury #Primary hepatocellular disease #pruritus likely 2/2 to above #Leukopenia #Thrombocytopenia #Pfi-fwbvqsq-wfjlualdg type 2 diabetes #Hypertension #Anterior left kidney mass #History of coccidiomycosis infection Discharge instructions: Follow up with me within one week, your appointment at the [facility] is 2:30 PM on May 13, 2025 Take your medicines as prescribed Avoid any alcohol intake permanently We will schedule you for an MRI as there was a possible mass on your kidney Return to ER if your symptoms worsen Instrucciones de descarga: Haz un seguimiento conmigo dentro de tiara semana, tu barrett en [facility]gina es a las 2:30 p. m. del 2024. [place] [facility] seg?n lo prescrito Evite cualquier consumo de alcohol de forma permanente. Le programaremos tiara resonancia magn?ann ya que hab?a tiara posible masa en chapa ri??n. Regrese a emergencias si radha s?ntomas empeoran This case was discussed with my attending physician, Dr. Garner, and senior resident Dr Lennon. Dwight Thakkar, DO PGY I Time Spent with Patient Time attestation: Total time spent providing and/or coordinating discharge services: Time spent: Greater than 30 minutes Exam Vital Signs Temp Pulse Resp BP Pulse Ox O2 Del Method 97 F 83 16 149/96 H 97 Room Air 05/10/25 12:00 05/10/25 12:00 05/10/25 12:00 05/10/25 12:00 05/10/25 12:00 05/10/25 12:00 Narrative Exam General: Alert and oriented x3, No apparent distress. Skin: Intact, Warm, no rashes. HEENT: Normocephalic, Atraumatic. Normal neck range of motion, Supple. Trachea midline. Respiratory: Lungs are clear to auscultation, Breath sounds are equal bilaterally with equal chest expansion. Cardiovascular: RRR, normal S1, S2, No murmurs. Distal pulses 2+ Abdomen: Abdomen soft, non-distended, without erythema, or lesions. Normotensive bowel sounds x4. Percussion tympanic. Palpation nontender in all four quadrants. No organomagely. No guarding or rebound present. Musculoskeletal/Extremities: No erythema, swelling, tenderness of any joints. No edema of BLE. DP pulses +2/3 b/l. Full active ROM of all four extremities. Mild lower bilateral upper extremity tremors noted. Neurologic: Oriented x3, cranial nerves II to XII grossly intact. Muscle strength 5/5 on UE and LE b/l, Moves extremities x4. Sensation intact to gross touch along C6-T1 and L2-S1 dermatomes. No focal neurologic deficits noted Psych: Thoughts linear and responses appropriate. Discharge Plan Plan Patient Disposition: HOME (Self Care) Patient condition on transfer: Stable Care Plan Goals: Discharge Instructions: Follow up with me within one week, your appointment at the [facility] is 2:30 PM on May 13, 2025 Take your medicines as prescribed Avoid any alcohol intake permanently We will schedule you for an MRI as there was a possible mass on your kidney Return to ER if your symptoms worsen Instrucciones de descarga: Haz un seguimiento conmigo dentro de tiara semana, tu barrett en el [facility] es a las 2:30 p. m. del 2024. [facility]?n lo prescrito Evite cualquier consumo de alcohol de forma permanente. Le programaremos tiara resonancia magn?ann ya que hab?a tiara posible masa en chapa ri??n. Regrese a emergencias si radha s?ntomas empeoran Prescriptions/Referrals Prescriptions/Med Rec: New folic acid 1 mg tablet 1 mg PO QDAY 14 Days Qty: 14 0RF Rx Instructions: Take one tablet by mouth every day thiamine HCl (vitamin B1) 100 mg tablet 100 mg PO QDAY 14 Days Qty: 14 0RF Rx Instructions: Take one tablet by mouth every day Continued metformin 1,000 mg Tablet 1,000 mg PO BID benazepril 40 mg tablet 40 mg PO QDAY Referrals: No Primary/Family,Physician [Primary Care Provider] - Outpatient Orders (i.e. Home Health, Labs, Imaging): Comprehensive Metabolic Panel (Routine) Timeframe: 1 Week Location: Determined by Patient Ordered By: Asia Barfield Patient/Caregiver Discharge Instructions Discharge Activity: activity as tolerated Education Materials: Alcohol Addiction, Alcohol Withdrawal: What to Expect, Addiction: Getting Help, Addiction Recovery Counseling Print Language: Macedonian Stand Alone Forms: [employer] Award Info., Patient Portal Info Letter Discharge Order Discharge Orders: Discharge (Routine); Ordered 05/10/25 Ordered By: Asia Barfield Quality Discharge Quality Measures VTE prophylaxis MD Attestestation MD Attestation I have discussed and was present for the essential components of the discharge history, physical examination, diagnosis, and discharge treatment plan with the resident. I agree with the patient's discharge care as documented by the resident and amended herein by me. Charles Garner DO. The patient understood all discharge instructions, all questions were answered satisfactorily. The patient was instructed to return to the Emergency Department is symptoms worsened or persisted. Patient will need follow-up with PCP, agree to follow-up in the [facility] for further evaluation of an incidental finding of a perinephric mass, will need outpatient MRI and possible biopsy. Will need a repeat CMP in 1 week for elevated liver enzymes. The patient was stable for discharge, all questions answered satisfactorily. Although this document has been carefully reviewed, there may still be some phonetic and other typographical errors. These errors are purely grammatical due to imperfections in the software program and should not be construed in any way to compromise the substance of the patient's medical care during this visit.
== END 2025-05-10 14:45 | disposition home or self-care (01) | DRG 775 ==
LOC: SERX 05-08 00:04 → SERHOLD 05-08 00:50 → S3NX 05-08 02:27
PROVIDERS: Nurse Practitioner Primary Care; Admitting Provider Student in an Organized Health Care Education/Training Program; Emergency Provider Emergency Medicine; Visit Provider Student in an Organized Health Care Education/Training Program
DX: F10.239 Alcohol dependence with withdrawal, unspecified (principal); E11.9 Type 2 diabetes mellitus without complications; I10 Essential (primary) hypertension; F10.229 Alcohol dependence with intoxication, unspecified; K80.20 Calculus of gallbladder without cholecystitis without obstruction; R25.3 Fasciculation; F41.9 Anxiety disorder, unspecified; N30.90 Cystitis, unspecified without hematuria; L29.9 Pruritus, unspecified; K70.9 Alcoholic liver disease, unspecified; K76.9 Liver disease, unspecified; D72.819 Decreased white blood cell count, unspecified; D69.6 Thrombocytopenia, unspecified; Z79.84 Long term (current) use of oral hypoglycemic drugs; N28.89 Other specified disorders of kidney and ureter; Y90.6 Blood alcohol level of 120-199 mg/100 ml
CPT/HCPCS: 36415; 74176; 76705; 78227; 80053; 80061; 80307; 80320; 81001; 82607; 82746; 83036; 83690; 83735; 84100; 85025; 85610; 85730; 86331; 86635; 93225; 96361; 96374; 96375; A9537; J1644; J1815; J2060; J2405; J2470; J2805; J3475; J3490; J7030; J7120; A9270; G0480

== ENCOUNTER 2025-05-13 14:28 | Outpatient (AMB) | payer MEDICAID, SELFPAY ==
[2025-05-13 14:56] VITALS: BP 141/84; PULSE 98; RESP 17; TEMP 36.9; O2SAT 97; BMI 29.3
--- NOTE | 2025-05-13 14:56 | ACNOTE_ITS ---
Vital Signs 05/13/25 14:56 Height 1.52 m Height Method Measured Weight 68.152 kg Weight Measurement Method Standing Scale BMI 29.3 BP 141/84 H Blood Pressure Source Automatic Cuff Blood Pressure Location Right Upper Arm Position Sitting Respiration 17 Pulse 98 Pulse Source Monitor Temp 98.5 F Temp Source Temporal Artery Scan Pulse Oximetry (%) 97 Oxygen Delivery Method Room Air Allergies/Meds Allergies & Medications Allergies No Known Allergies Allergy (Verified 05/13/25 14:57) Medication Reconciliation metformin 1,000 mg tablet 1,000 mg PO BID 04/04/19 [History Confirmed 05/13/25] benazepril 40 mg tablet 40 mg PO QDAY 05/08/25 [History Confirmed 05/13/25] folic acid 1 mg tablet 1 mg PO QDAY 2 weeks #14 tabs 05/10/25 [Rx Confirmed 05/13/25] thiamine HCl (vitamin B1) 100 mg tablet 100 mg PO QDAY 2 weeks #14 tabs 05/10/25 [Rx Confirmed 05/13/25] MA Intake Visit Data Collection New Patient or Established: Established Patient (seen at [facility] within 3 years) Seen by Clinical Staff ONLY (RN/JEAN): No Reason for Visit:: F\U HOSPITAL Pain Present Currently: No Pain scale:: 0 Pain Scale Used: Gonzales-Crespo/Numerical Harvesting Supervisor Required: Yes Primary Care Provider: ANTHONY PENA PCP or OBGYN visit in last 3 months: Yes Date of Last PCP or OBGYN visit: 05/10/25 Hx Now: No Do You Feel Safe at Home: Yes Authorities Contacted: N/A Smoking Status Smoking Status: Never smoker Immunization / Flu Flu Vaccine in the Last 12 Months: No Flu Vaccine Exclusion Criteria: No Exclusion Criteria Past Medical History Past Medical History NEUROLOGIC: Negative Seizures CARDIAC: Positive Hypertension; Negative Cardiac Disorders or Congestive Heart Failure RESPIRATORY: Negative Chronic Obstructive Pulmonary Disease (COPD) or Asthma GENITOURINARY: Negative Renal Disease ENDOCRINE: Positive Endocrine Disorders and Diabetes Mellitus Type 2; Negative Diabetes Mellitus Type 1 HEMATOLOGIC: Negative Sickle Cell Disease OTHER HISTORY: Negative Falls, Blood Transfusions, Blood Transfusion Reaction or Anesthesia Reactions Social History SMOKING STATUS: Smoking status: Never smoker SECOND HAND EXPOSURE: second hand exposure: No ALCOHOL: Alcohol Intake: Current ALCOHOL FREQUENCY: Alcohol Intake Frequency: 3 or More Drinks per Day HOUSING: Housing: Apartment LIVES WITH: Lives With: Spouse Patient Portal Questionaires Social History Living Situation History Housing: Apartment Housing Other:: pt lives with and 3 kids Tobacco History Smoking Status: Never smoker Second Hand Smoke Exposure: No Alcohol History Alcohol Intake: Current Alcohol Intake Frequency: 3 or More Drinks per Day Alcohol Intake Frequency Other:: beer 2x/day for 15yrs Domestic Abuse History Do You Feel Safe at Home: Yes Review of Systems Report any current symptoms Only answer those that you have currently: Past Medical History Past Medical History Have you ever been diagnosed with any of the following: Neurological Problems Seizures: No Cardiology Problems Congestive Heart Failure: No Hypertension: Yes Respiratory Problems Chronic Obstructive Pulmonary Disease (COPD): No Asthma: No Genital/Urinary Problems Renal Disease: No Endocrine Problems Diabetes Mellitus Type 1: No Diabetes Mellitus Type 2: Yes Blood Problems Sickle Cell Disease: No Other Problems Falls: No Blood Transfusions: No Blood Transfusion Reaction: No Anesthesia Reactions: No History of Present Illness HPI Narrative Pt examined at bedside today. Pt reports he is doing well. He denies having any alcohol since his last admission last week. He says he has not noticed any weight loss recently, denies blood in urine or having any kidney problems. Denies smoking hx or smoking exposure as well. No other complaints at this time. Review of Systems Review of Systems Narrative Review of Systems: Constitutional: No fever, chills, fatigue, weakness, weight loss HEENT: No eye pain, vision loss, ear pain, hearing loss, dysphagia, Cardiovascular: No chest pain, palpitations, edema, pain with walking Respiratory: No cough, shortness of breath, wheezing GI: No NVD, abdominal pain, constipation, blood in stool, loss of appetite, heartburn Extremities: No presence of pitting edema MSK: No back pain, joint pain, joint swelling Neuro: No dizziness, numbness, weakness, headaches, seizures, tremors Psych: No anxiety, depression Objective/Exam Narrative Physical exam: General: AAOx3, NAD, swiss speaking male HEENT: Moist mucous membranes, conjunctiva clear, EOMI, PERRLA, Cardiovascular: S1, S2, radial pulses +2 bilat, RRR Pulmonary: CTAB bilat no cough, no wheezing GI: No tenderness to light or deep palpitation, no guarding, rigidity, rebound tenderness or distension Extremities: No presence of trace or pitting edema in lower extremities bilaterally, dorsalis pedis pulses +2 bilaterally Neuro: AAOx3, no focal motor or sensory deficits in the UE or LE bilat Psych: Good judgement, thought and behavior Assessment & Plan Diagnosis / Problem List (1) Renal neoplasm: Status: Acute Assessment & Plan: CT abd/pelvis showed possible renal tumor while in patient Radiology recommending MRI abdomen w/w out contrast to further characterize L kidney mass 3.9 x 4.2 cm Plan: MR w/ wout abdomen (2) Hypertension: Status: Acute Qualifiers: Hypertension type: primary hypertension Qualified Code(s): I10 - Essential (primary) hypertension Assessment & Plan: Chronic Plan: Continue home benazepril 40 mg every day Orders: Orders MR abdomen wo/w con Today D49.519 - Neoplasm of unspecified behavior of unspecified kidney Office Procedures [facility] Level of Care Nursing/Assessment Patient Status: Established Patient Nursing Assessment/Reassessment: Medication Reconciliation, Update PMH in EMR and Vital Signs Coordination of Care: Complex Care and Chronic Disease 1-5, Consent,records obtained, informed consent, Education Simp Pt/Fam and 4+ Authorizations needed Established Patient Charge Established Patient Point Assignment: 100 Established Patient Point Charge: EP Level 3 (80-115)
== END 2025-05-13 15:58 | disposition home or self-care (01) ==
LOC: HODAHC 14:28
PROVIDERS: Supervising Provider Internal Medicine
DX: N28.89 Other specified disorders of kidney and ureter (principal); I10 Essential (primary) hypertension
CPT/HCPCS: 99213; G0463

== ENCOUNTER → 2025-06-25 | Outpatient (CLI) | payer MEDICAID, SELFPAY ==
--- NOTE | 2025-06-25 09:30 | XR_ITS ---
Examination: MRI abdomen with intravenous contrast. MRI abdomen without intravenous contrast. Date and time of exam: June 25, 2025, 1001 hours INDICATIONS: Diagnosis unspecified neoplasm kidney intermittent abdominal pain 2 months, worse the last week, cholelithiasis, solid mass anterior left kidney 3.9 x [address] abdomen May 07, 2025 Technique: Multiple axial, sagittal and coronal sections of the abdomen obtained. Transverse images, TR 6020, TE 107. T1 weighted transverse images, TR 582, TE 9.5. T2-weighted sagittal images, TR 4000, TE 105. T2-weighted sagittal images, TR 4000, TE 5. Coronal images, TR 4210, TE 107. Axial and coronal images are obtained post 20 cc intravenous injection, gadolinium. 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
== END | disposition home or self-care (01) ==
LOC: SMRI 09:02
PROVIDERS: PCP Physician Assistant
DX: K80.20 Calculus of gallbladder without cholecystitis without obstruction (principal); N28.89 Other specified disorders of kidney and ureter
CPT/HCPCS: 74183; A9577

== ENCOUNTER 2025-08-18 04:33 | Emergency (ER) | payer MEDICAID, SELFPAY ==
[2025-08-18 04:34] VITALS: BMI 24.0
[2025-08-18 04:49] VITALS: BP 167/97; PULSE 124; RESP 19; TEMP 37.2; O2SAT 98
--- NOTE | 2025-08-18 04:50 | XR_ITS ---
EXAMINATION: AP chest single view Tracting: AP portable upright chest single view Date and time: Number resection, 2024, 0552 hours, comparison February 28, 2025 INDICATIONS: Chest pain headaches beginning 2 days ago. FINDINGS: Mild prominence left ventricle Mild vascular congestion. No lobar pneumonia or pulmonary edema IMPRESSION: Mild prominence left ventricle. Mild vascular congestion
--- NOTE | 2025-08-18 04:58 | PD.EDALCOH ---
ED Alcohol RME/HPI General Chief Complaint: General Adult/Misc Complain Stated Complaint: CHEST PAIN/HEADACHE X 2DAYS Time Seen by Provider: 08/18/25 04:57 Arrival date/time: 08/18/25 04:33 Related Data Home Medications ?Medication ?Instructions ?Recorded ?Confirmed metformin 1,000 mg tablet 1,000 mg PO BID 04/04/19 05/13/25 benazepril 40 mg tablet 40 mg PO QDAY 05/08/25 05/13/25 Allergies Allergy/AdvReac Type Severity Reaction Status Date / Time No Known Allergies Allergy Verified 05/13/25 14:57 Course Quality Measures none Orders Category Date Time Status EKG (ED ONLY) *Do not use* NOW Care 08/18/25 04:39 Completed Saline [Insert IV] NOW Care 08/18/25 04:49 Active Straight [In and Out Catheter] X1 Care 08/18/25 04:[address] head/brain wo con Stat Exams 08/18/25 05:18 Ordered EKG (ED Only) Stat Exams 08/18/25 04:39 Ordered XR chest 1V portable Stat Exams 08/18/25 04:50 Taken Acetaminophen Stat Lab 08/18/25 04:51 Received Alcohol, Blood Medical Stat Lab 08/18/25 04:51 Received Ammonia Stat Lab 08/18/25 04:58 Received Amylase Stat Lab 08/18/25 04:51 Received BNP [B-Type Natriuretic Peptide] Stat Lab 08/18/25 04:58 Received Bilirubin,Direct Stat Lab 08/18/25 04:51 Received CBC Stat Lab 08/18/25 04:58 Completed CK [Creatine Kinase] Stat Lab 08/18/25 04:51 Received CMP [Comprehensive Metabolic Panel] Stat Lab 08/18/25 04:51 Received D-Dimer Stat Lab 08/18/25 04:58 Received Drug Screen,Urine Stat Lab 08/18/25 04:51 Ordered Lipase Stat Lab 08/18/25 04:51 Received Magnesium Stat Lab 08/18/25 04:51 Received PT [Prothrombin Time with INR] Stat Lab 08/18/25 04:58 Received PTT [Partial Thromboplastin Time] Stat Lab 08/18/25 04:58 Received TSH [Thyroid Stimulating Hormone] Stat Lab 08/18/25 04:51 Received Troponin I Stat Lab 08/18/25 04:51 Received UA, C/S IF [Urinalysis, C/S if Indicated] Stat Lab 08/18/25 04:52 Ordered VBG [Venous Blood Gas] Stat Lab 08/18/25 04:58 Completed LORazepam [Ativan Inj] Med 08/18/25 04:49 Discontinued 2 mg IVP X1 ONE Metoprolol Tartrate [Lopressor] Med 08/18/25 05:15 Discontinued 75 mg PO X1 ONE Ondansetron Inj [Zofran Inj] Med 08/18/25 04:49 Discontinued 4 mg IVP X1 ONE Ringers Lactated 1000 ml [Lactated Ringers] 1,000 ml Med 08/18/25 04:49 Active IV 1,000 mls/hr Thiamine Inj [Vitamin B-1 Inj] Med 08/18/25 04:49 Discontinued 100 mg IVP X1 ONE Vital Signs Vital signs: Vital Signs Temperature 99.0 F 08/18/25 04:49 Pulse Rate 124 H 08/18/25 04:49 Respiratory Rate 19 08/18/25 04:49 Blood Pressure 167/97 H 08/18/25 04:49 Pulse Oximetry (%) 98 08/18/25 04:49 Oxygen Delivery Method Room Air 08/18/25 04:49 Discharge Plan Prescriptions/Referrals Prescriptions/Med Rec: No Action metformin 1,000 mg Tablet 1,000 mg PO BID benazepril 40 mg tablet 40 mg PO QDAY Referrals: Temporary Provider,ED [Primary Care Provider, Emergency Medicine] - In 1 week Problem List Clinical Impression: Alcohol use Patient/Caregiver Discharge Instructions Print Language: Khmer Alcohol MDM Narrative MDM Narrative: This section includes all my notes and documentations, including HPI, PE, and ED course. Trung Robbins MD HPI: 50-year-old male here to be evaluated with multiple concerns. Has history of alcohol abuse. Quit alcohol for 3 months. Then he binged on alcohol for the past 15 days. Is here today concerned about headache and vomiting and palpitations and severe shaking. No hallucinations. No other complaints. ROS: All negative except as documented in HPI. Physical Exam: General: Alert and oriented. Severe tremors noted. High BP noted. Eyes: Conjunctivae and lids clear. EOMI. PERRL. ENT: No nasal congestion. Neck: Supple. Heart: Tachycardia with regular rhythm noted. Lungs: No respiratory distress. Good air movement. No rhonchi, wheezing, rales. Abdomen: Soft and nontender. Normal bowel sounds. No distension. No rebound or guarding. Legs: No clubbing, cyanosis, edema. Skin: Warm and dry. Neuro: Alert and oriented X 3. Cranial Nerves II-XII grossly intact. No peripheral motor deficits. I ordered IVF, Zofran 4 mg IV, Ativan 2 mg IV, thiamine 100 mg IV, oral metoprolol 75 mg, and diagnostic tests. At 6 AM on 08/18/2025, the care of the patient was transferred to Dr. MARLEEN Robbins MD Patient data External records reviewed:: [facility] previous records Clinical information provided by:: patient Social determinants that could affect healthcare access:: alcohol use Patient has the following chronic illnesses:: Alcohol abuse, HTN, DM How is presenting disease/condition affected by chronic disease/condition?: exacerbated by Evaluation data The following diagnostics were reviewed and interpreted by me:: EKG tracing(s) (My interpretation of the EKG is: Sinus rhythm (116 bpm) with nonspecific ST-T changes. Trung Robbins MD) Lab and/or radiology exams considered but not ordered:: None Interpretation Summary: Complete diagnostic tests are pending. Medications / Prescriptions Medications or Prescriptions considered but not ordered:: None Medication administrations:: Medication Administration History Lactated Ringer's (Lactated Ringers) 1,000 mls @ 1,000 mls/hr IV .Q1H ONE Stop: 08/18/25 05:48 Last Admin: 08/18/25 05:07 Dose: 1,000 mls/hr Documented By: CVL Discontinued Medications Lorazepam (Lorazepam 2 Mg/Ml Vial) 2 mg IVP X1 ONE Stop: 08/18/25 04:50 Last Admin: 08/18/25 05:10 Dose: 2 mg Documented By: CVL Metoprolol Tartrate (Metoprolol Tartrate 25 Mg Tablet) 75 mg PO X1 ONE Stop: 08/18/25 05:16 Ondansetron HCl (Ondansetron Inj 2 Mg/Ml Inj 2 Ml) 4 mg IVP X1 ONE; Protocol Stop: 08/18/25 04:50 Last Admin: 08/18/25 05:07 Dose: 4 mg Documented By: CVL Thiamine HCl (Thiamine Inj 100 Mg/Ml Vial 2 Ml) 100 mg IVP X1 ONE Stop: 08/18/25 04:50 Last Admin: 08/18/25 05:09 Dose: 100 mg Documented By: CVL I ordered IVF, Zofran 4 mg IV, Ativan 2 mg IV, thiamine 100 mg IV, oral metoprolol 75 mg, and diagnostic tests. Consultations Consultation(s) initiated? (list below): No Diagnosis Differential diagnosis alcohol: alcohol withdrawal delirium, hypomagnesemia, alcohol intoxication, alcohol ketoacidosis, alcohol withdrawal syndrome and alcohol withdrawal seizure Most likely diagnosis given after review of the tests above:: Complete diagnostic tests are pending. Admission Indicated Admission indicated?: not indicated Explain why admission is indicated or not indicated:: Complete diagnostic tests are pending. Admission Request Was there a request for admission?: No Disposition Plan Disposition Plan: other (specify) (At 6 AM on 08/18/2025, the care of the patient was transferred to Dr. HAWLEY)
[2025-08-18 05:00] VITALS: BP 180/98; PULSE 110; RESP 15; O2SAT 97
[2025-08-18] MEDS: ONDANSETRON INJ 2 MG/ML INJ 2 ML 4 MG IVP (05:07)
[2025-08-18] MEDS: RINGERS LACTATED 1000 ML 1,000 ML IV (05:07)
[2025-08-18] MEDS: THIAMINE INJ 100 MG/ML VIAL 2 ML IVP (05:09)
[2025-08-18] MEDS: LORazepam 2 MG/ML VIAL IVP (05:10)
[2025-08-18 05:11] LABS: Base Excess, Venous 2 (-3-3); O2 Saturation, Venous 81 % (96-97); PCO2, Venous 35 mmHg (36-56); PO2, Venous 44 mmHg (15-58); pH, Venous 7.46 (7.33-7.66)
[2025-08-18 05:14] LABS: Basophils # (Auto) 0.0 Thou/mm3 (0.0-0.2); Basophils % (Auto) 1 % (0-2.5); Eosinophils # (Auto) 0.1 Thou/mm3 (0.0-0.5); Eosinophils % (Auto) 1 % (0-10); Hematocrit 43.5 % (41.0-53.0); Hemoglobin 15.7 g/dL (13.5-16.0); Immature Granulocytes Auto 0.02 Thou/mm3 (0.00-0.00); Lymphocytes # (Auto) 2.3 Thou/mm3 (1.0-4.8); Lymphocytes % (Auto) 47 % (10-50); Mean Corpuscular HGB Conc 36.1 g/dl (31.0-37.0); Mean Corpuscular Hemoglobin 35.8 pg (25.0-35.0); Mean Corpuscular Volume 99 fL (80-100); Monocytes # (Auto) 0.6 Thou/mm3 (0.0-0.8); Monocytes % (Auto) 12 % (0-12); Neutrophils # (Auto) 1.9 Thou/mm3 (1.8-7.7); Neutrophils % (Auto) 39 % (37-80); Nucleated Red Blood Cell # 0.00 Thou/mm3 (0.00-0.00); Nucleated Red Blood Cell % 0 /100 WBC (0); Platelet Count 116 Thou/mm3 (140-440); RDW Standard Deviation 52.4 fL (35.1-43.9); Red Blood Count 4.38 Miln/mm3 (4.50-5.90); White Blood Count 4.9 Thou/mm3 (3.8-10.6)
--- NOTE | 2025-08-18 05:18 | XR_ITS ---
Examination: CT brain head without contrast. 2-D sagittal coronal reconstructions Date and time of exam: August 18, 2025, 0542 hours INDICATIONS: Headaches beginning 2 days ago CTDI: vol (mGy): 49.30 DLP: (mGycm): 1101 Technique: Multiple CT axial sections of the brain have been obtained, 5 mm slice thickness. Contrast has not been administered. 2-D sagittal, coronal reconstructions have been obtained Low dose protocols were performed. One or more of the following dose reduction techniques were used; automated exposure control, adjustment of the mA and/or KV according to patient size, use of iterative reconstruction technique. Findings: No significant ventricular enlargement. Intra-axial or extra-axial hemorrhage density is not seen. No mass effect or midline shift Basal cisterns are not remarkable. Fourth ventricle is midline. Cranial vault intact. Impression: Negative for acute hemorrhage, mass effect or midline shift Large retention cyst in the right maxillary antrum
[2025-08-18 05:26] LABS: INR 1.0 (0.9-1.3); Partial Thromboplastin Time 28.8 Seconds (22.0-36.0); Prothrombin Time 10.9 Seconds (9.0-12.2)
[2025-08-18 05:28] LABS: D-Dimer < 250 ng/mL (<600)
[2025-08-18 05:33] LABS: Ammonia < 10 uMol/L (11-32)
[2025-08-18 05:35] LABS: B-Type Natriuretic Peptide < 20 pg/mL (0-100)
[2025-08-18 05:46] VITALS: BP 152/89; PULSE 96; RESP 18; O2SAT 97
[2025-08-18 05:51] VITALS: BP 152/89; PULSE 101
[2025-08-18] MEDS: METOPROLOL TARTRATE 25 MG TABLET 75 MG PO (05:51)
[2025-08-18 06:01] LABS: Acetaminophen < 2.0 mcg/mL (10.0-20.0); Alanine Aminotransferase 46 U/L (10-49); Albumin, Serum 5.2 gm/dL (3.5-5.0); Albumin/Globulin Ratio 1.9 (1.2-2.2); Alcohol, Blood Medical 10.4 mg/dL (0-10.0); Alkaline Phosphatase 96 U/L (46-116); Amylase 44 U/L (30-118); Anion Gap 16 (7-16); Aspartate Amino Transferase 50 U/L (0-34); BUN/Creatinine Ratio 8 Ratio (12-20); Bilirubin,Direct 0.2 mg/dL (0.0-0.3); Bilirubin,Total 0.6 mg/dL (0.3-1.2); Blood Urea Nitrogen 6 mg/dL (9-23); Calcium 9.8 mg/dL (8.3-10.6); Calcium (Corrected) 9.8 mg/dL (8.5-10.1); Carbon Dioxide 23.9 mMol/L (20.0-31.0); Chloride 101 mMol/L (98-107); Creatine Kinase 108 U/L (34-171); Creatinine (Component) 0.8 mg/dL (0.6-1.3); Estimated Creatinine Clearance 90.4 mL/min (>60); Globulin 2.8 gm/dL (2.3-3.5); Glucose 265 mg/dL (74-106); Lipase 51 U/L (12-53); Magnesium 2.0 mg/dL (1.6-2.6); Osmolality,Calculated 287 (275-295); Potassium 3.9 mMol/L (3.4-5.1); Sodium 141 mMol/L (136-145); Thyroid Stimulating Hormone 1.08 uIU/mL (0.55-4.78); Total Protein 8.0 gm/dL (5.7-8.2); Troponin I < 0.020 ng/mL (0.0-0.045); eGFR > 60 See Note
--- NOTE | 2025-08-18 06:14 | PRELIM_ITS ---
CT scan of the head without intravenous contrast (axial sections with sagittal and coronal reformats) August 18, 2025 0541 hours Clinical history: Headache Compared with the prior study dated June 09 2024. Findings: There is no evidence of intracranial hemorrhage, mass effect or midline shift. There are periventricular white matter hypodensities, compatible with chronic small vessel ischemia. There is moderate volume loss. The calvarium is unremarkable. There is a retention cyst or polyp in the right maxillary sinus. The mastoid air cells and the otherwise visualized paranasal sinuses are clear. Impression: No evidence of intracranial hemorrhage, mass effect or midline shift. Periventricular chronic small vessel ischemia and moderate volume loss. Report Electronically Signed By: Mckayla Spencer 08/18/2025 6:14:18 AM [EST]
--- NOTE | 2025-08-18 06:30 | EDNOTE_ITS ---
<Statement entered by Yoly Rojas MD - 08/18/25 16:27> I, Yoly Rojas MD, have reviewed the history, exam, and assessment of the patient. I have evaluated the patient independently and agree with the plan of care documented by [ ]. All diagnostic studies were reviewed and discussed. I confirm the diagnosis as documented by the Resident. I was present during the Medical Decision Making for this patient. The patient's plan of care was created between myself and the Resident and consistent with our discussion of the patient's case. Emergency Room Addendum <Evelinegaetano Conde - Last Filed: 08/18/25 07:13> Addendum Narrative: 0600: Care assumed from Dr. Robbins, the previous shift emergency physician. Past medical, surgical, social and family history reviewed. Vitals and home medications reviewed. I will assume the care of the patient at this time. Please refer to the emergency department record for history and examination from initial visit.? Physical exam by me shows patient under no acute distress at this time. Pending CT head and Chest x-ray. UA pending. Utox pending. <Karen Eng MD - Last Filed: 08/18/25 08:20> Addendum Narrative: 0600: Care assumed from Dr. Robbins, the previous shift emergency physician. Past medical, surgical, social and family history reviewed. Vitals and home medications reviewed. I will assume the care of the patient at this time. Please refer to the emergency department record for history and examination from initial visit.?Patient chief complain of headache with past medical history of HTN and DM Type 2. 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 Drinks about 4 beers daily would like to continue to drink. Physical exam by me shows patient under no acute distress at this time. Alert and Orientated X3. Neuro exam intact appropriate upper and lower extremity motor function. Re-evaluated CIWA score of 7. Pending CT head and Chest x-ray. UA pending. Utox pending. CT head negative for any acute changes. Chest x-ray unremarkable. Utoxicology negative. UA negative for bacteria with glucose noted. Insulin 5 units sq given w/ repeat bedside glucose before discharge. Banana bag ordered. Patient will be discharged with advise to STOP drinking alcohol as he will continue to have alcohol withdrawals every time he stops drinking. Patient is unsure if he will stop drinking as he likes to drink about 4 beers after work. Ketorlac 10 mg PO PRN for 2 days given for headaches. AST/ALT within normal limits and kidney function within normal limits.
[2025-08-18 06:34] LABS: Collection Type, Urine Clean Catch; Squamous Epithelial Cell,Urine 0 /hpf (0-5)
[2025-08-18 06:50] VITALS: BP 149/87; PULSE 81; RESP 14; O2SAT 96
[2025-08-18 07:07] LABS: Bilirubin,Urine Negative (Negative); Blood,Urine Negative (Negative); Clarity,Urine Clear (Clear/Hazy); Color,Urine Lt-Yellow (Lt Yel-Yel); Culture Indicated,Urine Not Indicated; Glucose, Urine 4+ (Negative); Ketones,Urine 1+ (Negative); Leukocyte Esterase,Urine Negative (Negative); Nitrite,Urine Negative (Negative); PH,Urine 7.0 (5.0-7.0); Protein,Urine 1+ (Neg - Trace); RBC,Urine 1 /hpf (0-3); Specific Gravity,Urine 1.020 (1.001-1.035); Urobilinogen,Urine Negative mg/dL (0.0-1.0); WBC,Urine < 1 /hpf (0-5)
[2025-08-18] MEDS: INSULIN LISPRO (AdmeLOG) 1 UNIT/0.01 ML UNIT 5 UNIT SC (07:49)
[2025-08-18] MEDS: Magnesium Sulfate 2 GM Ivpb 2 GM/50 ML BAG IV (07:50)
[2025-08-18] MEDS: FOLIC ACID INJ 1 MG/0.2 ML IVP (07:50)
[2025-08-18 08:03] LABS: Amphetamine/Methamp Scrn,U Negative (Negative); Barbiturate Screen,Urine Negative (Negative); Benzodiazepines Screen,Urine Negative (Negative); Benzoylecgonine Screen, Ur Negative (Negative); Fentanyl Screen,Urine Negative (Negative); Opiate Screen,Urine Negative (Negative); THC Screen,Urine Negative (Negative)
[2025-08-18] MEDS: HYDROcodone/APAP 5/325 TABLET 1 TAB PO (08:30)
== END 2025-08-18 08:31 | disposition home or self-care (01) ==
PROVIDERS: Emergency Provider Emergency Medicine; PCP Physician Assistant
DX: F10.10 Alcohol abuse, uncomplicated (principal); I10 Essential (primary) hypertension; E11.9 Type 2 diabetes mellitus without complications
CPT/HCPCS: 36415; 70450; 71045; 80053; 80307; 80320; 80329; 81001; 82140; 82150; 82248; 82550; 82803; 83690; 83735; 83880; 84443; 84484; 85025; 85379; 85610; 85730; 93005; 96361; 96365; 96375; 99284; J1815; J2060; J2405; J3411; J3475; J3490; J7120; A9270; G0480

== ENCOUNTER 2025-10-12 15:04 | Emergency (ER) | payer MEDICAID, SELFPAY ==
--- NOTE | 2025-10-12 15:09 | EKG_ITS ---
[facility] Test Date: 2025-10-12 Pat Name: MAYA JUNE Department: Room: - Gender: Male Meal Cook: : 1975 Requested By: Jeyson Lr Order Number: [id number] Reading MD: Jeyson Lr Measurements Intervals [place] Rate: 111 P: 16 [place]: 128 QRS: -49 QRSD: 83 T: 17 QT: 322 QTc: 439 Interpretive Statements SINUS TACHYCARDIA LEFT ATRIAL ENLARGEMENT [-0.15mV P-WAVE IN V1/V2] PATTERN CONSISTENT WITH PULMONARY DISEASE LEFT ANTERIOR FASCICULAR BLOCK [QRS AXIS <= -45, QR IN I, RS IN II] Compared to ECG 02/28/2025 15:23:40 Atrial abnormality now present /store/S0/[id number].pdf
[2025-10-12 15:29] VITALS: BP 187/97; PULSE 111; RESP 19; TEMP 37; O2SAT 98
--- NOTE | 2025-10-12 16:13 | XR_ITS ---
Examination: CT brain head without contrast. 2-D sagittal coronal reconstructions Date and time of exam: October 12, 2025, 1715 hours INDICATIONS: Onset headache today CTDI: vol (mGy): 15.1 DLP: (mGycm): 1012 Technique: Multiple CT axial sections of the brain have been obtained, 5 mm slice thickness. Contrast has not been administered. 2-D sagittal, coronal reconstructions have been obtained Low dose protocols were performed. One or more of the following dose reduction techniques were used; automated exposure control, adjustment of the mA and/or KV according to patient size, use of iterative reconstruction technique. Findings: No significant ventricular enlargement. Intra-axial or extra-axial hemorrhage density is not seen. No mass effect or midline shift Basal cisterns are not remarkable. Fourth ventricle is midline. Cranial vault intact. Mild chronic ethmoid sinusitis 3.6 cm retention cyst in the right maxillary antrum Impression: Negative for acute hemorrhage, mass effect or midline shift
--- NOTE | 2025-10-12 16:13 | XR_ITS ---
EXAMINATION: PA chest single view TECHNIQUE: Upright PA chest single view Date and time: October 12, 2025, 1614 hours, comparison number second 2024 INDICATIONS: Chest pain today. FINDINGS: Normal heart size The lungs are clear. The Otoniel structures are intact IMPRESSION: No active disease
[2025-10-12] MEDS: ACETAMINOPHEN 500 MG TABLET 1000 MG PO (16:54)
[2025-10-12] MEDS: IBUPROFEN TAB 400 MG TABLET 800 MG PO (16:55)
--- NOTE | 2025-10-12 17:55 | PD.EDRME ---
Rapid Medical Screening Exam E Arrival date/time: 10/12/25 15:04 This is a 50-year-old male that comes into the emergency room with complaints of high blood pressure. Patient states he takes benazepril but today it was not working for him. Patient states his head was throbbing to his posterior head. Patient was told to come to the emergency room for further workup. Patient states that he was sent by his primary doctor. Patient also complains of mild chest pain patient has a history of high blood pressure and diabetes. Patient denies shortness of breath. I have greeted and performed a focused initial assessment of this patient. Initial appropriate labs ordered at this time. A comprehensive ED assessment and evaluation of the patient and analysis of all test and completion of medical decision making process will be conducted by additional ED provider. Chief Complaint: Recheck/Abnormal Lab/Rx Time Seen by Provider: 10/12/25 16:06 Vital signs: Vital Signs Temperature 98.6 F 10/12/25 15:29 Pulse Rate 111 H 10/12/25 15:29 Respiratory Rate 19 10/12/25 15:29 Blood Pressure 187/97 H 10/12/25 15:29 Pulse Oximetry (%) 98 10/12/25 15:29 Oxygen Delivery Method Room Air 10/12/25 15:29 Exam: Alert and oriented, breathing even and unlabored, Clinical Impression: Chest pain, headache, high blood pressure
[2025-10-12 18:16] VITALS: BP 173/93; PULSE 102; RESP 19; TEMP 36.9; O2SAT 97
[2025-10-12 18:30] LABS: Basophils # (Auto) 0.0 Thou/mm3 (0.0-0.2); Basophils % (Auto) 1 % (0-2.5); Eosinophils # (Auto) 0.1 Thou/mm3 (0.0-0.5); Eosinophils % (Auto) 1 % (0-10); Hematocrit 42.9 % (41.0-53.0); Hemoglobin 15.2 g/dL (13.5-16.0); Immature Granulocytes Auto 0.01 Thou/mm3 (0.00-0.00); Lymphocytes # (Auto) 1.8 Thou/mm3 (1.0-4.8); Lymphocytes % (Auto) 33 % (10-50); Mean Corpuscular HGB Conc 35.4 g/dl (31.0-37.0); Mean Corpuscular Hemoglobin 35.6 pg (25.0-35.0); Mean Corpuscular Volume 101 fL (80-100); Monocytes # (Auto) 0.7 Thou/mm3 (0.0-0.8); Monocytes % (Auto) 12 % (0-12); Neutrophils # (Auto) 2.9 Thou/mm3 (1.8-7.7); Neutrophils % (Auto) 53 % (37-80); Nucleated Red Blood Cell # 0.00 Thou/mm3 (0.00-0.00); Nucleated Red Blood Cell % 0 /100 WBC (0); Platelet Count 163 Thou/mm3 (140-440); RDW Standard Deviation 43.1 fL (35.1-43.9); Red Blood Count 4.27 Miln/mm3 (4.50-5.90); White Blood Count 5.5 Thou/mm3 (3.8-10.6)
[2025-10-12 18:53] VITALS: BP 178/111; PULSE 98; RESP 16; TEMP 36.9; O2SAT 95
[2025-10-12 18:54] LABS: B-Type Natriuretic Peptide 24 pg/mL (0-100)
[2025-10-12 18:55] LABS: Alanine Aminotransferase 35 U/L (10-49); Albumin, Serum 4.6 gm/dL (3.5-5.0); Albumin/Globulin Ratio 1.4 (1.2-2.2); Alkaline Phosphatase 101 U/L (46-116); Anion Gap 9 (7-16); Aspartate Amino Transferase 34 U/L (0-34); BUN/Creatinine Ratio 15 Ratio (12-20); Bilirubin,Total 0.7 mg/dL (0.3-1.2); Blood Urea Nitrogen 12 mg/dL (9-23); Calcium 9.9 mg/dL (8.3-10.6); Calcium (Corrected) 9.9 mg/dL (8.5-10.1); Carbon Dioxide 27.2 mMol/L (20.0-31.0); Chloride 98 mMol/L (98-107); Creatinine (Component) 0.8 mg/dL (0.6-1.3); Globulin 3.4 gm/dL (2.3-3.5); Glucose 241 mg/dL (74-106); Osmolality,Calculated 275 (275-295); Potassium 4.4 mMol/L (3.4-5.1); Sodium 134 mMol/L (136-145); Total Protein 8.0 gm/dL (5.7-8.2); Troponin I < 0.020 ng/mL (0.0-0.045); eGFR > 60 See Note
--- NOTE | 2025-10-12 18:57 | PC.NURSE ---
Provider at bedside and made aware of pt's BP
--- NOTE | 2025-10-12 18:58 | PD.EDRECHK ---
ED Recheck Abnl Lab Rx-RME/HPI General Chief Complaint: Recheck/Abnormal Lab/Rx Stated Complaint: HIGH BP, CHEST PAIN, ANDRE Time Seen by Provider: 10/12/25 16:06 Arrival date/time: 10/12/25 15:04 50-year-old male patient with significant history of diabetes mellitus hypertension, came in for evaluation regarding elevated blood pressure. Today patient noted headache and checked his blood pressure and it was elevated numbers unknown. Patient denies any neck pain denies any chest pain denies any dizziness denies any other complaint no medication was taken prior to ER visit RME / HPI RME / HPI narrative: 10/12/25 15:04 This is a 50-year-old male that comes into the emergency room with complaints of high blood pressure. Patient states he takes benazepril but today it was not working for him. Patient states his head was throbbing to his posterior head. Patient was told to come to the emergency room for further workup. Patient states that he was sent by his primary doctor. Patient also complains of mild chest pain patient has a history of high blood pressure and diabetes. Patient denies shortness of breath. I have greeted and performed a focused initial assessment of this patient. Initial appropriate labs ordered at this time. A comprehensive ED assessment and evaluation of the patient and analysis of all test and completion of medical decision making process will be conducted by additional ED provider. Exam: Alert and oriented, breathing even and unlabored, Impression: Chest pain, headache, high blood pressure Related Data Home Medications ?Medication ?Instructions ?Recorded ?Confirmed metformin 1,000 mg tablet 1,000 mg PO BID 04/04/19 05/13/25 benazepril 40 mg tablet 40 mg PO QDAY 05/08/25 05/13/25 Allergies Allergy/AdvReac Type Severity Reaction Status Date / Time No Known Allergies Allergy Verified 05/13/25 14:57 Review of Systems Review of Systems Narrative Review of Systems: Review of system reviewed and within normal limits except mentioned in HPI ED Exam Narrative Physical exam: VITAL SIGNS: Reviewed. GENERAL APPEARANCE: Alert and interactive, follows commands, no acute distress, HEAD AND FACE: Non-traumatic. ENT: PERRL, pink conjunctivitis, eyelid no trauma, Mucous membrane moist. NECK: Supple, nontender, no nuchal rigidity. CHEST: No tenderness, no crepitus, no paradoxical movement, no retractions. LUNGS: Clear, well ventilated, symmetric, no rales, no wheezing, no ronchi, no stridor, good breath sounds bilaterally. HEART: Regular rate, regular rhythm, no murmur, no gallops. ABDOMEN: Soft, positive bowel sounds, nondistended, no guarding, nontender, no rebound, no masses, RECTAL: Deferred. GENITAL: Deferred. NEUROLOGICAL: Gross motor function intact sensory function intact, Appropriate for age. MUSCULOSKELETAL: low back nontender, full range of motion. EXTREMITIES: Nontender, full range of motion. SKIN: Color pink, dry, no rash, no lacerations, no abrasions, no contusions. LYMPHATICS: Deferred. Course Quality Measures none Orders Category Date Time Status EKG (ED ONLY) *Do not use* NOW Care 10/12/25 15:[address] head/brain wo con Stat Exams 10/12/25 16:13 Completed EKG (ED Only) Stat Exams 10/12/25 15:09 Draft XR chest 1V Stat Exams 10/12/25 16:13 Completed BNP [B-Type Natriuretic Peptide] Stat Lab 10/12/25 18:07 Completed CBC Stat Lab 10/12/25 18:07 Completed Comprehensive Metabolic Panel Stat Lab 10/12/25 18:07 Completed Troponin I Stat Lab 10/12/25 18:07 Completed Acetaminophen Tab [Tylenol ES Tab] Med 10/12/25 16:12 Discontinued 1,000 mg PO X1 ONE Ibuprofen Tab [Motrin Tab] Med 10/12/25 16:12 Discontinued 800 mg PO X1 ONE cloNIDine HCL [Catapres] Med 10/12/25 18:58 Discontinued 0.2 mg PO X1 ONE Vital Signs Vital signs: Vital Signs Temperature 98.6 F 10/12/25 15:29 Pulse Rate 111 H 10/12/25 15:29 Respiratory Rate 19 10/12/25 15:29 Blood Pressure 187/97 H 10/12/25 15:29 Pulse Oximetry (%) 98 10/12/25 15:29 Oxygen Delivery Method Room Air 10/12/25 15:29 Recheck / Abnormal Lab / Rx MDM Narrative MDM Narrative:: 50-year-old male patient with significant history of diabetes mellitus hypertension, came in for evaluation regarding elevated blood pressure. Today patient noted headache and checked his blood pressure and it was elevated numbers unknown. Patient denies any neck pain denies any chest pain denies any dizziness denies any other complaint no medication was taken prior to ER visit EKG showed sinus tachycardia, ventricular rate of 111 bpm, no ST segment elevation or depression noted. CBC no leukocytosis noted no anemia noted CMP blood sugar of 241 with no sign of DKA. CT scan of the head came back unremarkable. I personally reviewed and interpreted the x-ray of this patient. There is no acute abnormalities found, no infiltrates no pneumothorax no hemothorax normal chest x-ray. Review of other structures was without significant abnormal findings also. I additionally reviewed the radiologist report and agree with the interpretation. Patient received Tylenol and clonidine 0.2 and Motrin. Blood pressure was noted to be 168/96 prior to discharge. he is stable for charged home Patient data External records reviewed:: None Clinical information provided by:: patient Social determinants that could affect healthcare access:: none Patient has the following chronic illnesses:: Hypertension diabetes mellitus How is presenting disease/condition affected by chronic disease/condition?: exacerbated by Evaluation data The following diagnostics were reviewed and interpreted by me:: lab results, radiology exam(s) and EKG tracing(s) Lab and/or radiology exams considered but not ordered:: None Interpretation Summary: See above Medications / Prescriptions Medications or Prescriptions considered but not ordered:: None Medication administrations:: Medication Administration History Discontinued Medications Acetaminophen (Acetaminophen 500 Mg Tablet) 1,000 mg PO X1 ONE Stop: 10/12/25 16:13 Last Admin: 10/12/25 16:54 Dose: 1,000 mg Documented By: Clonidine (Clonidine Hcl 0.1 Mg Tablet) 0.2 mg PO X1 ONE Stop: 10/12/25 18:59 Last Admin: 10/12/25 19:34 Dose: 0.2 mg Documented By: LESIA Ibuprofen (Ibuprofen Tab 400 Mg Tablet) 800 mg PO X1 ONE Stop: 10/12/25 16:13 Last Admin: 10/12/25 16:55 Dose: 800 mg Documented By: See above Consultations Consultation(s) initiated? (list below): No Diagnosis Recheck Differential Diagnosis: other (Hypertension, headache, hypertensive urgency) Most likely diagnosis given after review of the tests above:: Hypertensive urgency Admission Indicated Admission indicated?: not indicated Admission Request Was there a request for admission?: No Disposition Plan Disposition Plan: Discharge Discharge Attestation Discharge Attestation: The patient Was given an opportunity to ask questions and understood the discharge instructions. Discharge instructions specifically effects, indications for sooner follow up or return to the emergency department, and the expected course of current diagnosis. Patient condition: Stable Discharge Plan Plan Patient Disposition: HOME (Self Care) Discharge Disposition comment: Stable Prescriptions/Referrals Prescriptions/Med Rec: No Action metformin 1,000 mg Tablet 1,000 mg PO BID benazepril 40 mg tablet 40 mg PO QDAY Referrals: Susannah Solo NP [Primary Care Provider] - In 1 week Problem List Clinical Impression: Hypertension Patient/Caregiver Discharge Instructions Discharge Activity: activity as tolerated Education Materials: ED Hypertension, Established Additional Instructions: Thank you for the opportunity for serving you today. You are stable for discharged . You are advised to: Follow-up with your PCP in 1 to 2 days Return to ED for worsening of symptoms Increase oral fluids Take medication as prescribed prescribed your doctor Print Language: U[place] Stand Alone Forms: [facility] Award Info., Patient Portal Info Letter PA/SAEID Supervising Physician PA/SAEID Supervising Physician: MD Piotr
[2025-10-12 19:31] VITALS: BP 168/96; PULSE 90; RESP 19; TEMP 37.1; O2SAT 94
[2025-10-12 19:34] VITALS: BP 168/96; PULSE 90
[2025-10-12 20:36] VITALS: BP 113/77; PULSE 77; RESP 18; TEMP 36.6; O2SAT 95
== END 2025-10-12 20:37 | disposition home or self-care (01) ==
PROVIDERS: Nurse Practitioner Family; Emergency Provider Emergency Medicine; PCP Nurse Practitioner Family
DX: I10 Essential (primary) hypertension (principal); R00.0 Tachycardia, unspecified; I44.4 Left anterior fascicular block
CPT/HCPCS: 36415; 70450; 71045; 80053; 83880; 84484; 85025; 93005; 99283; A9270